=== PATIENT | female | born 1970 | race Asian ===

== ENCOUNTER → 2017-09-07 08:54 | Outpatient (CLI) | payer OTHER, MEDICAID, SELFPAY ==
--- NOTE | 2017-09-07 | DI.RAD.S_ITS ---
PROCEDURE: FL BARIUM SWALLOW W SPEECH INDICATIONS: COUGH TECHNIQUE: Examination was conducted in conjunction with speech pathology per standard protocol. In the lateral projection, filming was performed of the patient swallowing. AP projection filming may also be performed with patient swallowing. COMPARISON: None. FINDINGS: Function: The oral preparatory phase appears normal, with proper containment. The subsequent oral propulsive phase, pharyngeal phase, and esophageal phase of swallowing also appear normal with all proffered substances. Trace laryngotracheal penetration without aspiration. Persistent vallecular pooling. On the AP views, incomplete clearance of contrast from the esophagus, especially thicker liquids, suggesting esophageal dysmotility. Morphology: No cricopharyngeal bar is identified. No cervical esophageal webs. No Zenker's diverticulum. No strictures. IMPRESSION: 1. Mild laryngeal penetration with thin liquids. Considerable vallecular pooling and probable abnormal esophageal motility. Please see speech therapist report for details Dictated by: Silvestre Allen M.D. on 09/07/2017 at 10:08 Approved by: Silvestre Allen M.D. on 09/07/2017 at 10:11
--- NOTE | 2017-09-07 11:43 | ST.OPIE ---
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 Thompson Reason for Referral Persistent cough Setting Setting Outpatient Care Patient Information Identification Type Name Patient History Kacy was referred for a modified barium swallow by her physician, Dr. Thompson, due to a persistent cough and difficulty swallowing, beginning in February of 2017. She also told this speech- language pathologist that she has experienced a high level of throat clearing, beginning two weeks ago. She further reported that sometimes it feels like something gets stuck in her larynygeal area. 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 She saw an doctor of radiology in May of 2017 due to trouble swallowing. The ENT found that her larynx was irritated, possibly due to allergies. Kacy recently switched from Jazmin to Zyrtec for these allergies and also takes several other allergy medications (e.g., Singulair and Flonase). Her drill sharpener operator, Dr. Hale, told her that she might be experiencing silent reflux and prescribed Prevacid, which she has been taking without noticable effect. He also suggested that she have an MBSS to r/o silent reflux. The pt is scheduled for an endoscopy in September with Dr Robledo. Patient Positioning Position View Lat-A/P Imaging Lateral View Textures Administered Trials Presented Thin Liquid via Spoon Thin Liquid via Cup Callimont Liquid via Spoon Callimont Liquid via Cup Pudding Thick Liquid via Spoon Regular Textures Oral Phase Source: MBSIMP (TM) (C) Bolus Specific Scoring Grid Lip Closure No Impairment (WNL) Tongue Control During Bolus Hold No Impairment (WNL) Bolus Prep/Mastication No Impairment (WNL) Bolus Transport/Lingual Motion No Impairment (WNL) Oral Residue No Impairment (WNL) Residue Clearing No Impairment (WNL) Nasal Regurgitation No Pharyngeal Phase Source: MBSIMP (TM) (C) Bolus Specific Scoring Grid Delayed Initiation of Pharyngeal Swallow Yes Tongue Base Strength/Range of Motion Moderate Impairment Residue Along the Tongue Base Yes Clearance of Residue Along Tongue Base Mild Impairment Laryngeal Elevation Mild Impairment Anterior Hyoid Movement Moderate Impairment Epiglottic Range of Motion Moderate Impairment Vallecular Residue Yes Clearance of Vallecular Residue Moderate Impairment Laryngeal Vestibular Closure Mild Impairment Pharyngeal Stripping Wave WFL Pharyngeal Contraction WFL Posterior Pharyngeal Wall Residue Yes Clearance of Posterior Pharyngeal Wall Minimal Impairment Residue Upper Esophageal Sphincter Opening No Impairment (WNL) Residue in the Pyriform Sinuses Yes Clearance of Residue in the Pyriform Minimal Impairment Sinuses Esophageal Clearance Upright Position Moderate Impairment Pharyngoesophageal Backflow Observed Yes Additional Pharyngeal Phase Observations Kacy exhibited a delay in the initiation of the pharyngeal swallow, with the head of the bolus reaching the vallecula before swallowing across all trials. Her hyoid elevation was decreased and there was also reduced hyoid excursion. Her tongue base strength also presented as decreased. This decrease in tongue base strength and hyoid motion results in an incomplete epiglottic inversion, which puts Kacy at risk of laryngeal penetration/aspiration. She demonstrated flash penetration on a nectar thick liquid trial, but no aspiration. She had a moderate amount of residue in the vallecula on the thin and nectar thick trials, which were partially cleared with a cough, a throat clear, and a double swallow. There was a mild amount of residue in the pyriform sinuses and posterior pharyngeal wall on the thin liquid trials, which was cleared with a double swallow. Kacy did exhibit pharyngoesophageal backflow as the bolus in the A-P view was observed to flow upward following the swallow. A/P View Textures Administered Trials Presented Callimont Liquid via Cup Pudding Thick Liquid via Spoon A/P View Observations Pharyngeal Contraction WFL Esophageal Function Slowed Clearing Esophageal Clearance Upright Position Moderate Impairment Additional Observations The bolus was observed to remain in the esophagus following the swallow. Retrograde backflow was observed within the upper 1/2 of the esophagus Esophageal Observations Esophageal Function Kacy demonstrated very slow clearing of the bolus through her esophagus into her stomach . For this reason, a referral to a cement boat and barge loader is indicated. Clinical Impressions Dysphagia Type Moderate Pharyngeal Phase Dysphagia Findings Kacy Rehabilitation Potential Good Patient Appropriate for Therapy Yes Recommendations Diet Liquids Order Thin Diet Order Regular Medication Recommendation As Tolerated Aspiration Precautions Recommended Precautions Upright at 90 Degrees Alternate Liquids/Solids Double Swallow Treatment Plan Therapy Recommendations Outpatient Speech Therapy Additional Therapy Recommendations Outpatient speech therapy as indicated after additional testing Recommended Referrals GI Consult Compensatory Strategies Recommendations Sitting Upright (90 deg) Double Swallow Alternate Liquids/Solids
== END ==
PROVIDERS: PCP Family Medicine; Visit Provider Nurse Practitioner Family
DX: R05 Cough (principal)
CPT/HCPCS: 74230; 92611

== ENCOUNTER 2017-09-19 11:18 | Day surgery (SDC) | payer OTHER, MEDICAID, SELFPAY ==
[2017-09-19] VITALS (8 sets, daily range): BP systolic 130–175; BP diastolic 75–91; PULSE 67–77; RESP 12–17; TEMP 36.2–36.6; O2SAT 96–99
--- NOTE | 2017-09-19 | PATH_ITS ---
[facility] Accession Number: [id number] . 01 Material submitted: . GE JUNCTION . 02 Diagnosis: Gastroesophageal Junction, Biopsy: Squamocolumnar junctional mucosa with specialized intestinal metaplasia; please see Comment. Negative for dysplasia or malignancy. [facility]/09/21/2017 . 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 . 02 Electronically signed: . Jn Castillo MD, PhD, Pathologist NPI- [id number] . 01 Gross description: . GE JUNCTION: Received in formalin are 3 fragment(s) of schneider, soft tissue measuring 0.5 x 0.1 x 0.1 cm to 0.1 x 0.1 x 0.1 cm submitted entirely in 1 cassette(s) /TRC /TRC . 02 Pathologist provided ICD-10: K22.70 . 02 CPT . 205685 Performed at: 01 [facility] [address] [facility], [place], [place] [id number] MD Bo Clemente MD Phone: [phone] Performed at: 02 [facility] [address] [place], [place] [id number] MD Silvino Woods MD Phone: [phone]
--- NOTE | 2017-09-19 11:51 | PM.PREOP ---
Pre-operative Note Interval Note Pre-op Check: History & Physical Reviewed by Physician and Exam Performed H&P completed within 30 days and has changed as indicated here:: none ASA Class (for procedural sedation): II
[2017-09-19] MEDS: SODIUM CHLORIDE 0.9% 1,000 ML 200 ML IV (11:54)
[2017-09-19] MEDS: LIDOCAINE 4% SOLN 50 ML 20 ML TOP (12:10)
[2017-09-19] MEDS: TETRACAINE/BENZOCAINE/BUTAMBEN (CETACAINE) BOTTLE 1 SPRAY TOP (12:11)
[2017-09-19] MEDS: fentaNYL 250 MCG/5 ML INJ IV (12:11)
--- NOTE | 2017-09-19 12:15 | PM.OP.ENDO ---
Operative Date/Time/Diagnoses - Date of procedure: 09/19/17 Time of procedure: 12:15 Pre-op diagnosis: Chronic upper airway irritation. Consider silent reflux as a cause. Esophageal dysmotility based on a a swallowing study. Post-op diagnosis: same (Inflammation of the area above her vocal cords. Possible mild irritation at the GE junction. Area was biopsied.) Procedure & Clinicians Study performed: EGD with cold biopsy Same procedure as scheduled: Yes Indications: Chronic cough with swallowing issues. Surgeon: Albert Peters Procedure Notes SCOAP/Timeout: Performed Procedure in detail: The patient is placed in left lateral decubitus position underwent IV sedation directed by the surgeon consisting of fentanyl and Versed. Topical anesthetic had been applied to the oropharynx. A bite block was inserted the scope was advanced through it. The vocal cord and supraglottic area were examined and there was a fair amount of inflammation above the cords. The cords were normal in appearance. The scope was advanced into the esophagus. The esophagus was normal. The GE junction was possibly mildly inflamed. The stomach insufflated well. I could identify no abnormalities in the stomach itself. The antrum and body were normal the pyloric channel was normal. The duodenal bulb was a little short but otherwise unremarkable. The duodenum was normal to 4th part. The scope was brought back into the stomach and retroflexed. The proximal stomach appeared to be normal in appearance and I saw no evidence of hiatal hernia. The scope was brought up into the GE junction will random biopsies were taken. The scope was then removed. The patient seemed to tolerate the procedure well. Scope withdrawal time: Not applicable Sedation minutes: 15 Findings: other findings (Inflammation of the supraglottic area above the vocal cords.) Specimen(s): other (Biopsies at the GE junction) Complications: none Plan for aftercare: Consider referral to speech pathology to improve swallowing mechanism. Follow up: as needed Disposition: PACU
[2017-09-19] MEDS: MIDAZOLAM 5 MG/5 ML VIAL IV (12:16)
--- NOTE | 2017-09-19 13:01 | SUR.PHASEII ---
friend brought in, report to alicia leiva.
== END 2017-09-19 13:22 | disposition home or self-care (01) ==
PROVIDERS: PCP Family Medicine; Visit Provider Specialist
PROC: 0DJ08ZZ Inspection of Upper Intestinal Tract, Via Natural or Artificial Opening Endoscopic (ICD-10-PCS; CPT 43235; principal; 2017-09-19 11:45)
DX: K22.70 Barrett's esophagus without dysplasia (principal); K22.4 Dyskinesia of esophagus; R05 Cough; K44.9 Diaphragmatic hernia without obstruction or gangrene; G47.33 Obstructive sleep apnea (adult) (pediatric); Z87.891 Personal history of nicotine dependence
CPT/HCPCS: 43239; 88305; 99152; J2250; J3010

== ENCOUNTER 2017-10-09 09:20 | Outpatient (RCR) | payer OTHER, MEDICAID, SELFPAY | END 2018-04-05 10:42 | LOC: SP 09:20 | PROVIDERS: PCP Family Medicine; Visit Provider Specialist | DX: R13.10 Dysphagia, unspecified (principal) | CPT/HCPCS: 92610 ==

== ENCOUNTER → 2018-06-18 12:35 | Outpatient (CLI) | payer OTHER, SELFPAY ==
[2018-06-18 14:22] LABS: Alanine Aminotransferase 28 IU/L (9-52); Aspartate Aminotransferase 22 IU/L (14-36); Cholesterol 133 mg/dL (140-199); HDL Cholesterol 73 mg/dL (40-60); LDL Cholesterol Calculated 47 mg/dL (<100); Triglycerides 63 mg/dL (35-150)
== END ==
PROVIDERS: PCP Family Medicine; Visit Provider Nurse Practitioner Gerontology
DX: I21.3 ST elevation (STEMI) myocardial infarction of unspecified site (principal); R07.2 Precordial pain
CPT/HCPCS: 36415; 80061; 84450; 84460

== ENCOUNTER 2018-11-29 09:24 | Day surgery (SDC) | payer OTHER, SELFPAY ==
[2018-11-29] VITALS (8 sets, daily range): BP systolic 133–151; BP diastolic 76–88; PULSE 61–68; RESP 14–20; TEMP 36–37.2; O2SAT 95–100
--- NOTE | 2018-11-29 | PATH_ITS ---
[facility] Accession Number: [id number] . 01 Material submitted: . PART A: gastrointestinal site - BIOPSY ANTRUM PART B: esophagus, E-G Junction - BIOPSY GE JUNCTION . 01 Clinical history: . A. FOR H. PYLORI . 02 Diagnosis: A. Stomach, Antrum, Biopsy: Antral mucosa with reactive gastropathy. Negative for Helicobacter by immunohistochemistry. Negative for intestinal metaplasia. Negative for dysplasia and malignancy. . B. GE Junction, Biopsy: Squamocolumnar junctional mucosa with specialized intestinal metaplasia consistent with Mcclellan's esophagus. Negative for dysplasia and malignancy. [facility]/12/03/2018 . 02 Electronically signed: . Jessica Omer MD, Pathologist NPI- [id number] . 01 Gross description: . Part A: BIOPSY ANTRUM: Received in formalin are 4 fragment(s) of schneider, soft tissue measuring 0.1 x 0.1 x 0.1 cm to 0.4 x 0.2 x 0.2 cm which is entirely submitted and submitted entirely in 1 cassette(s) Part B: BIOPSY GE JUNCTION: Received in formalin are 4 fragment(s) of schneider, soft tissue measuring 0.1 x 0.1 x 0.1 cm to 0.2 x 0.1 x 0.1 cm which is entirely submitted and submitted entirely in 1 cassette(s) /DMC /DMC . 02 Microscopic: . A) An immunohistochemical stain was performed to evaluate for Helicobacter organisms and is negative. The control stain showed appropriate reactivity. . B) An alcian blue stain was performed to evaluate for intestinal metaplasia and is positive. The control stain showed appropriate reactivity. . * This test was developed and its performance characteristics determined by [facility]. It has not been cleared or approved by the U.S. Food and Drug Administration. The FDA has determined that such clearance or approval is not necessary. This test is used for clinical purposes. It should not be regarded as investigational or for research. . 02 Pathologist provided ICD-10: K22.70 . 02 CPT . 802814, 593596, P59003, 489663 Performed at: 01 [facility] [address] [place] [id number] MD Bo Clemente MD Phone: [phone] Performed at: [address] [id number] MD Jessica Omer MD Phone: [phone]
[2018-11-29] MEDS: SODIUM CHLORIDE 0.9% 1,000 ML 200 ML IV (09:57)
--- NOTE | 2018-11-29 09:59 | PM.HP.1 ---
History of Present Illness Date Patient Seen: 11/29/18 Time Patient Seen: 09:59 Chief complaint: [id number] Narrative: Patient is here for an EGD. She has had history of Mcclellan's esophagus. This is a surveillance exam. She has noticed a little more coughing of late. Patient History Medical History (Updated 11/29/18 @ 10:00 by Albert Peters MD) Obstructive sleep apnea of adult (Chronic) Excessive daytime sleepiness (Chronic) Insomnia, persistent (Chronic) Snoring (Chronic) Blindness of right eye (Chronic) Coronary artery disease (Chronic) Glaucoma (Chronic) Mixed stress and urge urinary incontinence (Chronic) History of myocardial infarction in last year (Resolved) Surgical History Hx of heart artery stent (Resolved) Status post delivery (Resolved 12/16/10) Status post eye surgery (Resolved) Social History marital status: details: to Adonis Brandon, lives in [facility] number of children: 3 household members: children and other lives independently: Yes caregiver/support person: No housing: house 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[employer]) nithin/gnosticism: [employer]oration Family & Social History Social History: household members other,children lives independently Yes caregiver/support person No Meds Home Medications Medication Instructions Recorded Confirmed Type ASPIRIN (Aspir-Low) 81 mg PO #0 11/01/10 11/28/18 History Prozac 10 mg PO DAILY 09/19/17 11/28/18 History Singulair 1 tab PO DAILY 09/19/17 11/28/18 History Zyrtec 10 mg PO BEDTIME PRN 11/28/18 11/28/18 History atorvastatin 80 mg tablet 80 mg PO DAILY 11/28/18 11/28/18 History cholecalciferol (vitamin D3) 2,000 4,000 unit PO DAILY 11/28/18 11/28/18 History unit capsule clopidogrel 75 mg tablet 75 mg PO DAILY 11/28/18 11/29/18 History ferrous sulfate 325 mg (65 mg 325 mg PO DAILY tab 11/28/18 11/28/18 History iron) tablet fluoxetine 10 mg tablet 20 mg PO DAILY 11/28/18 11/28/18 History magnesium 400 mg PO DAILY 11/28/18 11/28/18 History mecobalamin (vitamin B12) 2,000 mcg PO DAILY 11/28/18 11/28/18 History melatonin 5 mg tablet 10 mg PO BEDTIME PRN 11/28/18 11/28/18 History metoprolol tartrate 25 mg PO BID 11/28/18 11/28/18 History omega-3 fatty acids PO DAILY 11/28/18 11/28/18 History pantoprazole 20 mg tablet,delayed 20 mg PO BID tab 11/28/18 11/29/18 History release trospium ER 60 mg capsule,extended 60 mg PO QAM 11/28/18 11/28/18 History release 24 hr valsartan 20 mg PO DAILY 11/28/18 11/28/18 History vitamin B complex tablet 1 tab PO DAILY 11/28/18 11/28/18 History Allergies Allergy/AdvReac Type Severity Reaction Status Date / Time No Known Drug Allergies Allergy Verified 11/29/18 09:47 Review of Systems Review of Systems All systems reviewed & are unremarkable except as noted in HPI and below Exam Vital Signs (past 8 hours): - 11/29/18 09:55 Temperature 97.2 F L Pulse Rate 68 Respiratory Rate 18 Blood Pressure 151/76 H Pulse Oximetry 100 Oxygen Delivery Method Room Air Narrative Exam Narrative: Pleasant cooperative patient no apparent distress. Lungs are clear to auscultation. No rales or rhonchi. Heart regular rate and rhythm no murmur gallop. Abdomen is soft nontender without mass. No obvious hernias. Patient is alert and oriented x3. Assessment & Plan Assessment & Plan narrative: Patient for an EGD in biopsy to survey her Mcclellan's esophagus. I have discussed the procedure including risks of bleeding perforation. She appears to understand wishes to proceed.
--- NOTE | 2018-11-29 10:01 | PM.PREOP ---
Pre-operative Note Interval Note History & Physical reviewed/Exam performed by Physician: Yes Changes to H&P: No ASA Class (for procedural sedation): III
[2018-11-29] MEDS: LIDOCAINE 4% SOLN 50 ML 20 ML TOP (10:08)
[2018-11-29] MEDS: MIDAZOLAM 5 MG/5 ML VIAL IV (10:09)
[2018-11-29] MEDS: fentaNYL 250 MCG/5 ML INJ IV (10:10)
--- NOTE | 2018-11-29 10:22 | PM.OP.ENDO ---
Operative Date/Time/Diagnoses Date of procedure: 11/29/18 Time of procedure: 10:22 Pre-op diagnosis: History of Mcclellan's esophagus. Increase cough. Post-op diagnosis: same (Retained gastric food. Edema at the pyloric channel. Biopsies taken of the GE junction but no obvious Mcclellan's) Procedure & Clinicians Study performed: EGD with cold biopsy Same procedure as scheduled: Yes Indications: Surveillance Surgeon: Albert Peters Procedure Notes SCOAP/Timeout: Performed Procedure in detail: The patient had topical anesthetic applied to oropharynx. She was placed in left lateral decubitus position and underwent IV sedation directed by the surgeon consisting of fentanyl and Versed. A bite block was inserted and the scope was advanced through it into the esophagus. The esophagus was remarkable for mild tortuosity. GE junction was noted at 35 cm from the incisors. The stomach insufflated well. There were no lesions seen in the body, antrum or at the incisura. The pyloric channel was narrowed by a edema on lesser curve side. The duodenum was unremarkable to the 4th part. The scope was brought back into the stomach and retroflexed. The proximal stomach normal except I could not see a portion due to food. There was no evidence of a hiatal hernia.. The scope was straightened and brought out through the esophagus again. No lesions were seen. The typical appearance of Mcclellan's was not present but given her prior history biopsies were taken at the GE junction. The scope was removed and the patient tolerated the procedure well. Scope withdrawal time: Not applicable Sedation minutes: 12 Findings: other findings (Retained food and swelling with narrowing of the pyloric channel) Specimen(s): other (Antral biopsies including of the pyloric swelling and GE junction biopsies given history of Mcclellan's) Complications: none Recommendations: Other recommendation (EGD in 3 years) Follow up: as needed Disposition: PACU
--- NOTE | 2018-11-29 11:15 | SUR.PHASEI ---
Post procedure PACU note: Patient VSS, O2 sat WNL, responds appropriately to verbal commands, drowsy but easily arousable. Tolerating po without nausea. Stable for transfer to [facility]. Verbal report given to Efren Pearson RN
--- NOTE | 2018-11-29 11:58 | SUR.PHASEII ---
Abd soft. Pt's ride not available. Call light within reach.
== END 2018-11-29 13:20 | disposition home or self-care (01) ==
PROVIDERS: Family Provider Family Medicine; PCP Family Medicine; Visit Provider Specialist
PROC: 0DJ08ZZ Inspection of Upper Intestinal Tract, Via Natural or Artificial Opening Endoscopic (ICD-10-PCS; CPT 43235; principal; 2018-11-29 09:45)
DX: K22.70 Barrett's esophagus without dysplasia (principal); K31.1 Adult hypertrophic pyloric stenosis; K31.9 Disease of stomach and duodenum, unspecified; G47.33 Obstructive sleep apnea (adult) (pediatric); I25.10 Atherosclerotic heart disease of native coronary artery without angina pectoris; I25.2 Old myocardial infarction; H54.40 Blindness, one eye, unspecified eye; Z95.5 Presence of coronary angioplasty implant and graft
CPT/HCPCS: 43239; 99152; J2250; J3010

== ENCOUNTER → 2018-12-19 12:43 | Outpatient (CLI) | payer OTHER, SELFPAY ==
--- NOTE | 2018-12-19 | DI.RAD.S_ITS ---
PROCEDURE: XR CERVICAL SPINE 2V OR 3V INDICATIONS: NUMBNESS TINGLING IN L ARM TECHNIQUE: 3 view(s) of the cervical spine were acquired. COMPARISON: None. FINDINGS: Bones: No fractures or dislocations to the superior endplate of T2 level. The lateral masses of C1 appear intact on the odontoid view. No acute compression fracture. Multilevel cervical spondylitic changes with disc space loss at C5-6 and associated endplate osteophyte formation. Straightening of cervical lordosis. No suspicious bony lesions. Soft tissues: No prevertebral soft tissue swelling. IMPRESSION: Multilevel cervical spondylosis most prominent at C5-6. Minimal straightening of normal cervical lordosis likely related to positioning and/or concurrent muscle spasms. If there is persistent clinical concern or focal neurological deficits, further evaluation with MRI can be considered. Dictated by: Jarek Aquino M.D. on 12/19/2018 at 17:58 Approved by: Jarek Aquino M.D. on 12/19/2018 at 18:00
== END ==
PROVIDERS: PCP Family Medicine; Visit Provider Family Medicine
DX: M54.2 Cervicalgia (principal); M47.812 Spondylosis without myelopathy or radiculopathy, cervical region; R20.0 Anesthesia of skin; R20.2 Paresthesia of skin
CPT/HCPCS: 72040

== ENCOUNTER → 2018-12-26 12:33 | Outpatient (CLI) | payer OTHER, SELFPAY ==
--- NOTE | 2018-12-26 | DI.RAD.S_ITS ---
PROCEDURE: XR LUMBAR SPINE 2-3V INDICATIONS: LOW BACK PAIN TECHNIQUE: Pre-views of the lumbar spine were acquired. COMPARISON: None. FINDINGS: Bones: 5 hcm-cyl-haaxgjm vertebrae are present. There is normal bony alignment. No vertebral body compression fractures. Degenerative endplate changes are noted at L3-4 through L5-S1 levels. No suspicious bony lesions. Soft tissues: Overlying bowel gas pattern is normal. No suspicious soft tissue calcifications. IMPRESSION: Degenerative disc disease in lower lumbar spine. No compression fracture or spondylolisthesis. Dictated by: Ede Hernandez M.D. on 12/26/2018 at 14:56 Approved by: Ede Hernandez M.D. on 12/26/2018 at 14:56
--- NOTE | 2018-12-26 12:40 | DIET.PN ---
Dietary Progress Note Assessment: 48y F c significant history of high blood pressure c complications (blind R eye, heart attack) currently in Cardio Rehab wanting eating plan to keep blood pressure down and wt in good range. Also developing neck arthritis c pain, wants anti-inflammatory diet info. Desires weekly check-ins for accountablility. 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 Pt reports recent stress r/t living situation, raising teenager. HT: 5'1 WT: 168# UBW: 185# BMI: 31.2 obese Goal Wt: 135# craves salt, thirsty and dry mouth. Has tried hormone therapy and 500kcal restrictions to lose weight. currently trying intermittent fasting, wants to do 23h but admits to cheating. Usual Intake: 7:30am wakes 2 glass water c meds 10am decaf coffee c creamer 1230pm: leftovers or 1.5c steel cut oats c 3 sardines in olive oil c lillie or (seasonal fruits) c decaf coffee and 12oz water sn: chips/cheese/crackers 6pm dinner: fish/chicken, vegetables, fruits, c rice (brown and wild more and more) wakes up 5x/n for coughing or just can't sleep PA: on feet all day, two days in gym and 1 d at cardio rehab Nutrition Diagnosis: Undesirable food choices r/t tendency to rely on extreme measures for weight loss aeb pt listing multiple failed diets and yoyo weights, eating primarily between noon and 6pm, and choosing high sodium snacks. Interventions: Using [employer] to track food for next several weeks trying to keep to about 1,610kcal per day Limit steel cuts to 1c at [facility] with one more sardine. Change snacks to shellie, 12 unsalted sprouted dehydrated nuts, or vegetable salads Attend intermittent fasting talk at [facility] Monitoring/Evaluations: f/u one week
== END ==
PROVIDERS: Family Provider Family Medicine; PCP Family Medicine; Visit Provider Family Medicine
DX: I10 Essential (primary) hypertension (principal); M54.42 Lumbago with sciatica, left side; M54.41 Lumbago with sciatica, right side; G89.29 Other chronic pain; M51.36 Other intervertebral disc degeneration, lumbar region; M54.5 Low back pain
CPT/HCPCS: 72100; 97802

== ENCOUNTER → 2019-01-10 12:32 | Outpatient (CLI) | payer OTHER, SELFPAY ==
--- NOTE | 2019-01-10 13:28 | DIET.PN ---
Dietary Progress Note Assessment: 48y F here for f/u regarding implementation of heart healthy diet and wt loss for control of her high BP. WT: 166# (same as 2w ago, wt goal is 135#) Pt continuing in cardiac rehab 1x/w and going to gym 1-2x/w in addition. Pt currently tracking food using shukri set to 1610kcal/d and 2,300mg sodium. She is staying within her kcal and sodium ranges, but discouraged she has not been losing wt. Nutrition Diagnosis: overweight r/t inactivity aeb pt working out 2x/w and otherwise relying on active job as activity minutes, no wt loss in 2w. Interventions: Discussed wt maintenance vs wt loss, how her plan is excellent for maintenance but needs to make a caloric deficit to see wt loss. A healthy way to do this is with increased cardio physical activity. Pt will follow 16h intermittent fast daily between 2000 and 1200, set new kcal goal at 1450 (-160kcal/d) and will aim to get 30 min of cardio exercise per day. Monitoring/Evaluations: f/u in two weeks
== END ==
PROVIDERS: PCP Family Medicine; Visit Provider Family Medicine
DX: I10 Essential (primary) hypertension (principal)
CPT/HCPCS: 97802

== ENCOUNTER 2019-03-14 11:30 | Outpatient (RCR) | payer OTHER, SELFPAY | END 2019-03-28 09:15 | LOC: CAR 11:30 | PROVIDERS: PCP Family Medicine; Visit Provider Family Medicine | DX: I21.3 ST elevation (STEMI) myocardial infarction of unspecified site (principal) | CPT/HCPCS: 93797; 93798 ==

== ENCOUNTER → 2019-05-10 14:28 | Outpatient (CLI) | payer OTHER, SELFPAY ==
--- NOTE | 2019-05-10 | DI.CT.S_ITS ---
PROCEDURE: CT ABDOMEN PELVIS W CON INDICATIONS: Unspecified ovarian cyst, unspecified side TECHNIQUE: After the administration of oral and intravenous contrast, 5 mm thick sections acquired from the diaphragms to the symphysis. 5 mm thick coronal and sagittal reformats were performed. For radiation dose reduction, the following was used: automated exposure control, adjustment of mA and/or kV according to patient size. COMPARISON: None. FINDINGS: Image quality: Excellent. ABDOMEN: Lung bases: Lung bases are clear. Heart size is normal. Solid organs: Liver is normal in size and enhancement. Multiple tiny presumed cysts versus hemangiomata of the liver. Gallbladder is unremarkable. Biliary system is non-dilated. Pancreas enhances normally. Spleen is normal in size and enhancement. No adrenal nodules. Kidneys are normal in size and enhancement, without hydronephrosis. Peritoneum and bowel: Stomach, small bowel, and colon loops are normal in caliber and wall thickness. No free fluid or air. Nodes and vessels: No retroperitoneal or mesenteric adenopathy. Aorta and inferior vena cava are normal in caliber. Miscellaneous: No ventral hernias. PELVIS: Genitourinary: Bladder wall thickness is normal. Miscellaneous: No inguinal hernias or adenopathy. There is a large cystic structure involving the left adnexa, consistent with a large ovarian cystic lesion. Measurements are 9.3 x 9.1 x 7.8 cm. Bones: No suspicious bony lesions. No vertebral body compression fractures. IMPRESSION: 1. Large cystic lesion of left adnexa. Lesion may potentially be benign or malignant. 2. No findings suspicious for metastatic disease. Dictated by: Eric Price M.D. on 05/10/2019 at 17:32 Approved by: Eric Price M.D. on 05/10/2019 at 17:42
[2019-05-10 15:24] LABS: Alanine Aminotransferase 18 IU/L (<35); Albumin Globulin Ratio 1.3 (1.0-2.8); Alkaline Phosphatase 93 U/L (38-126); Aspartate Aminotransferase 26 IU/L (14-36); BUN Creatinine Ratio 25.7 (6-22); Bilirubin Total 0.2 mg/dL (0.2-1.3); Blood Urea Nitrogen 18 mg/dL (7-17); Carbon Dioxide 27 mmol/L (22-32); Chloride 105 mmol/L (98-107); Estimated Glomerular Filt Rate > 60.0 mL/min (>60); Glucose 111 mg/dL (70-100); HEMOLYSIS < 15 (0-50); Potassium 3.7 mmol/L (3.4-5.1); Sodium 140 mmol/L (137-145)
== END ==
PROVIDERS: PCP Family Medicine; Visit Provider Urology
DX: N83.202 Unspecified ovarian cyst, left side (principal); R39.9 Unspecified symptoms and signs involving the genitourinary system
CPT/HCPCS: 36415; 74177; 80053; Q9967

== ENCOUNTER → 2019-05-16 08:54 | Outpatient (CLI) | payer OTHER, SELFPAY ==
--- NOTE | 2019-05-16 08:57 | DI.US.S_ITS ---
PROCEDURE: US PELVIC COMPLETE INDICATIONS: EVAL LT ADNEXAL CYSTIC MASS SEEN ON US 05/08, CT 05/10 TECHNIQUE: Real-time scanning was performed of the pelvic organs, with image documentation. Additional endovaginal scanning was necessary due to incomplete visualization of the adnexal and endometrial structures by transabdominal scanning. COMPARISON: [facility], CT, CT ABDOMEN PELVIS W CON, 05/10/2019, 15:33. FINDINGS: Transabdominal scanning: No pathologic free abdominal or pelvic fluid. Endovaginal scanning: Uterus: Uterus is normal in size at 10.2 x 6.1 x 5.1 cm. The endometrium measures 18 mm in combined thickness. Ovaries: The right ovary measures 4.4 x 3.2 x 2.6 cm. A dominant follicle measuring 2.1 cm can be seen within it. At the expected location of the left ovary, there is a chocolate cyst that measures 9.5 8.3 x 6.9 cm. The left ovary is not seen separate from this lesion. IMPRESSION: Likely endometrioma seen involving the left ovary. The endometrial stripe is mildly thickened at 18 mm. Dictated by: Francis Lopez M.D. on 05/16/2019 at 9:47 Approved by: Francis Lopez M.D. on 05/16/2019 at 9:51
== END ==
PROVIDERS: PCP Family Medicine; Referring Provider Obstetrics & Gynecology; Visit Provider Obstetrics & Gynecology
DX: Z01.818 Encounter for other preprocedural examination (principal); N80.1 Endometriosis of ovary; N92.0 Excessive and frequent menstruation with regular cycle; R93.89 Abnormal findings on diagnostic imaging of other specified body structures; R19.09 Other intra-abdominal and pelvic swelling, mass and lump; R10.2 Pelvic and perineal pain
CPT/HCPCS: 36415; 76830; 76856; 85025; 86304; 86305

== ENCOUNTER → 2019-05-16 12:56 | Outpatient (CLI) | payer OTHER, SELFPAY ==
[2019-05-16 14:07] LABS: Add Manual Diff / Slide Review NO; Basophils Absolute Auto 100 /uL (0-100); Basophils Percent Auto 0.9 % (0-2); Eosinophils Absolute Auto 300 /uL (0-450); Eosinophils Percent Auto 3.6 % (2-4); Hematocrit 37.5 % (36-46); Hemoglobin 12.4 g/dL (12.0-16.0); Lymphocytes Absolute Auto 1300 /uL (1100-4500); Lymphocytes Percent Auto 15.5 % (25-40); Mean Corpuscular Hemoglobin 26.2 PG (26-34); Mean Corpuscular Volume 79.3 fL (80-100); Monocytes Absolute Auto 500 /uL (0-900); Neutrophils Absolute Auto 6300 /uL (1500-7000); Platelet Count 343 X10^3/uL (150-400); Red Blood Cell Count 4.73 X10^6/uL (4.0-5.2); Red Cell Distribution Width 15.4 % (11.6-14.8); White Blood Cell Count 8.5 X10^3/uL (4.5-11.0)
[2019-05-16 14:48] LABS: Cancer Antigen 125 23 U/mL (0-35)
[2019-05-21 16:22] LABS: Human HE4 Antigen 36 pmol/L
== END ==
PROVIDERS: PCP Family Medicine; Referring Provider Obstetrics & Gynecology; Visit Provider Obstetrics & Gynecology
DX: Z01.818 Encounter for other preprocedural examination (principal); N92.0 Excessive and frequent menstruation with regular cycle; R19.09 Other intra-abdominal and pelvic swelling, mass and lump; R93.89 Abnormal findings on diagnostic imaging of other specified body structures
CPT/HCPCS: 36415; 85025; 86304; 86305

== ENCOUNTER 2019-06-06 06:21 | Day surgery (SDC) | payer OTHER, SELFPAY ==
[2019-06-04 08:53] VITALS: BMI 32.5
[2019-06-06] VITALS (18 sets, daily range): BP systolic 129–169; BP diastolic 65–89; PULSE 77–91; RESP 14–20; TEMP 35.9–37; O2SAT 91–98; BMI 32.4
--- NOTE | 2019-06-06 | PATH_ITS ---
[facility] Accession Number: [id number] . 01 Material submitted: . PART A: endometrium - ENDOMETRIAL CURETTINGS PART B: uterine adnexa - LEFT OVARY, BILATERAL FALLOPIAN TUBES AND ENDOMETRIOMA . 02 Diagnosis: A. Endometrium, Curettage: Proliferative endometrium with features suggestive of glandular and stromal breakdown. No evidence of neoplasia or hyperplasia. . B. Left Ovary, Bilateral Fallopian Tubes, Salpingo-oophorectomy, Salpingectomy: Benign endometriotic cyst/endometrioma. Fallopian tube and fallopian tube segment with no diagnostic abnormality. No evidence of neoplasia. [facility] 06/12/2019 1510 Local . 02 Electronically signed: . Jessica Omer MD, Pathologist NPI- [id number] . 01 Gross description: . A. Received in formalin, labeled with the patient's name and endometrial curettings, is a 2.0 x 1.0 x 0.5 cm aggregate of multiple irregular fragments of red-schneider soft tissue and mucus on Telfa, entirely submitted. Summary of sections: A1 - multiple pieces. B. Received in formalin, labeled with the patient's name and left ovary, fallopian tube and endometrioma, is a fragment of the distal fimbriated end of fallopian tube, and an ovary with attached fallopian tube. The fallopian tube fimbria measures 1.0 x 0.7 x 0.5 cm, and is bisected and entirely submitted. The attached fallopian tube is fimbriated, segmented, and measures 5.5 cm length by 0.6 cm diameter when reapproximated, is covered with purple-schneider serosa with paratubal cysts, and has a lumen up to 0.3 cm. The attached ovary is previously disrupted, 49 grams, 8.0 x 5.5 x 5.0 cm, with a pale schneider, convoluted outer surface which is inked black. Opening the uniloculated cystic ovary reveals red-brown adherent clot material within, wall thickness up to 0.8 cm, without papillary components identified. Pale schneider remaining ovarian parenchyma is identified within the thickened portion of the wall. Tax Collector sections are submitted. Summary of sections: B1 - distal fallopian tube fimbriae fragment, two pieces; B2 - fallopian tube fimbriae and cross-sections, four pieces; B3-5 - ovary, multiple pieces. ([id number]) B6-9 - additional delivery representative cyst wall fragments. /[facility] 06/12/2019 1510 Local . 02 Microscopic: . B. An immunohistochemical stain for CD10 was performed on block B7 to characterize cells of interest and is positive, consistent with scattered endometrial stroma. The control stain showed appropriate reactivity. . * This test was developed and its performance characteristics determined by [facility]. It has not been cleared or approved by the U.S. Food and Drug Administration. The FDA has determined that such clearance or approval is not necessary. This test is used for clinical purposes. It should not be regarded as investigational or for research. . 02 Pathologist provided ICD-10: N80.1 . 02 CPT . 297228, 085738 Specimen Comment: A duplicate report has been generated due to demographic updates. Performed at: 01 [facility] [address] [address], [place], [place] [id number] MD Bo Clemente MD Phone: [phone] Performed at: [address] [place] [id number] [place] [id number] MD Jessica Omer MD Phone: [phone]
--- NOTE | 2019-06-06 07:21 | PM.PREOP ---
Pre-operative Note Interval Note History & Physical reviewed/Exam performed by Physician: Yes Changes to H&P: No
[2019-06-06 07:37] LABS: Add Manual Diff / Slide Review NO; Basophils Absolute Auto 100 /uL (0-100); Basophils Percent Auto 1.4 % (0-2); Eosinophils Absolute Auto 400 /uL (0-450); Eosinophils Percent Auto 5.1 % (2-4); Hematocrit 36.5 % (36-46); Hemoglobin 11.9 g/dL (12.0-16.0); Lymphocytes Absolute Auto 1400 /uL (1100-4500); Lymphocytes Percent Auto 18.4 % (25-40); Mean Corpuscular HGB Conc 32.7 % (30-36); Mean Corpuscular Hemoglobin 26.1 PG (26-34); Mean Corpuscular Volume 79.8 fL (80-100); Monocytes Absolute Auto 400 /uL (0-900); Monocytes Percent Auto 5.6 % (3-14); Neutrophils Absolute Auto 5300 /uL (1500-7000); Neutrophils Percent Auto 69.5 % (50-75); Platelet Count 317 X10^3/uL (150-400); Red Blood Cell Count 4.57 X10^6/uL (4.0-5.2); Red Cell Distribution Width 15.2 % (11.6-14.8); White Blood Cell Count 7.6 X10^3/uL (4.5-11.0)
[2019-06-06] MEDS: LACTATED RINGERS 1,000 ML 42 ML IV ×2 (07:42→08:52)
[2019-06-06 07:47] LABS: Alanine Aminotransferase 23 IU/L (<35); Albumin Globulin Ratio 1.3 (1.0-2.8); Alkaline Phosphatase 95 U/L (38-126); Aspartate Aminotransferase 26 IU/L (14-36); BUN Creatinine Ratio 23.3 (6-22); Bilirubin Total 0.2 mg/dL (0.2-1.3); Blood Urea Nitrogen 14 mg/dL (7-17); Calcium 9.8 mg/dL (8.4-10.2); Carbon Dioxide 30 mmol/L (22-32); Chloride 102 mmol/L (98-107); Estimated Glomerular Filt Rate > 60.0 mL/min (>60); Globulin 3.1 g/dL (1.7-4.1); Glucose 113 mg/dL (70-100); HEMOLYSIS < 15 (0-50); Potassium 3.7 mmol/L (3.4-5.1); Sodium 140 mmol/L (137-145); Total Protein 7.1 g/dL (6.3-8.2)
[2019-06-06] MEDS: BUPIVACAINE 0.5% W/ EPI (PF) 10 ML VIAL 20 ML INJ (08:51)
[2019-06-06] MEDS: OXYCODONE/ACETAMINOPHEN 5/325 TABLET 1 TAB PO ×2 (11:07→14:01)
[2019-06-06] MEDS: fentaNYL 100 MCG/2 ML INJ IV ×2 (11:16→11:21)
[2019-06-06] MEDS: HYDROMORPHONE 2 MG INJ IV ×3 (11:30→11:55)
--- NOTE | 2019-06-06 11:46 | SUR.PHASEI ---
[facility] care studio operations engineer in charge stated pt will be going to center with receiving RN Kush Conway; will have to hold off transfer per Jinny until 1245.
--- NOTE | 2019-06-06 15:26 | PC.ADMIT ---
[email or web address] Admission Note: The patient,Kacy Taylor,48 y/o, was given written information regarding hospital policies, unit procedures and contact persons. Patient's smoking status: Former smoker. Vital Signs - 8 hr 06/06/19 10:46 06/06/19 10:51 06/06/19 10:56 Temperature 97.8 F 97.8 F 96.7 F L Pulse Rate 91 H 87 90 Respiratory Rate 20 18 20 Blood Pressure 145/72 H 138/78 136/86 Pulse Oximetry 95 93 91 06/06/19 11:01 06/06/19 11:17 06/06/19 11:32 Temperature 96.7 F L 97.3 F L 97.3 F L Pulse Rate 88 87 84 Respiratory Rate 16 17 19 Blood Pressure 137/76 155/81 H 158/78 H Pulse Oximetry 92 92 98 06/06/19 11:40 06/06/19 11:45 06/06/19 11:50 Temperature Pulse Rate 80 83 83 Respiratory Rate 17 17 17 Blood Pressure 157/83 H 152/65 H 129/75 Pulse Oximetry 95 96 96 06/06/19 11:55 06/06/19 12:00 06/06/19 12:26 Temperature 97.5 F L 97.7 F Pulse Rate 83 84 84 Respiratory Rate 17 17 14 Blood Pressure 138/86 132/79 135/81 Pulse Oximetry 97 95 95 06/06/19 12:55 06/06/19 13:25 06/06/19 13:55 Temperature 97.7 F 98.1 F 98.2 F Pulse Rate 85 85 87 Respiratory Rate 16 17 16 Blood Pressure 133/78 133/83 147/85 H Pulse Oximetry 97 96 98 06/06/19 14:55 Temperature 98.6 F Pulse Rate 89 Respiratory Rate 17 Blood Pressure 140/80 Pulse Oximetry 97
--- NOTE | 2019-06-06 15:26 | PC.NURSE ---
1255 Admitted to [facility] from OR settled in. Vital signs done
[2019-06-06] MEDS: KETOROLAC 30 MG/ML VIAL IV (16:32)
[2019-06-06] MEDS: OXYCODONE IR 10 MG TABLET PO (17:51)
--- NOTE | 2019-06-06 21:36 | PM.GYNOP.1 ---
Operative Date/Time/Diagnoses Date of procedure: 06/06/19 Time of procedure: 10:30 Pre-op diagnosis: 1. Large complex left ovarian cyst, probable endometrioma 2.Menorrhagia Post-op diagnosis: other (Large complex left ovarian cyst, apparent endometrioma or hemorrhagic ovarian cyst. Normal appearing endometrium) Procedure & Clinicians Procedure: Procedures Operation Date: 06/06/19 07:45 Actual Procedures Side Surgeon p D&C , Hysteroscopy , Not Applicable Alexa Brownlee MD s Laparoscopic Oophorectomy left, bilateral salpingectomy Left Alexa Brownlee MD Indications: Symptomatic 9 cm complex left ovarian cyst which appears consistent with an endometrioma versus hemorrhagic cyst on ultrasound. HE4 and CA 125 were normal. Heavy menses, menorrhagia for 2 months, unable to obtain office biopsy due to tight cervix Surgeon: Alexa Brownlee Molding Process Technician: Tien Alcantara Anesthesia Type: General Operative Notes Findings: There was an omental adhesion to abdominal wall in the left lower quadrant which was lysed. A large smooth-walled left ovarian cyst was noted, encompassing the entire ovary. The tube was splayed over this cyst. The cyst was adherent to the left lateral inferior uterus, and had 1 thin filmy adhesion to the sigmoid which was lysed. Otherwise free of adhesions. The cyst was drained for dark brown, chocolate fluid consistent with old blood. After removal the cyst was incised and was smooth walled. Cyst appeared consistent with an endometrioma or old hemorrhagic cyst. On laparoscopy the uterus appeared normal. The right ovary appeared normal. The right fallopian tube appeared normal, noted to be previously interrupted with prior tubal ligation as had been the left tube. There was no endometriosis noted in the anterior or posterior cul-de-sacs. On hysteroscopy a normal appearing uterine cavity was noted, without any polyps, fibroids or lesions. The tubal ostia were visible bilaterally. The endometrium was overall atrophic in appearance with only some minimal shaggy tissue. Endocervical canal appeared normal. Closure Type: primary Specimen(s): endometrial curettings, left tube & ovary, portion of right tube and washings Estimated blood loss (mL): 50 Blood products transfused: none Procedure in detail: After being properly identify the patient was taken to operating room. After an adequate level of general anesthesia was obtained she was placed in the dorsal lithotomy position and prepped and draped in routine sterile fashion. Her bladder was sterilely drained with a rubber catheter with the prep. Time-out was taken and patient procedure was identified. Attention was 1st placed vaginally where an open-sided Graves speculum was placed and the cervix was grasped with a single-tooth tenaculum. She had taken vaginal misoprostol several hours prior to the procedure. Her cervix was visibly open, dilated at this time. A uterine sound was passed, uterus sounded to 9.5 cm. Cervix was open enough to pass a medium-sized dilator, no dilatation needed and a diagnostic hysteroscope was passed without difficulty. Normal saline solution was used as a uterine distention medium. Visualization revealed findings as listed above. There was a normal cervical canal, uterine cavity and normal-appearing endometrium, overall atrophic in appearance, without any lesions noted. The hysteroscope was removed. A curette was placed and global curettage performed for a small amount of endometrial curettings, consistent with the thin appearance of the endometrium. Curettings were placed on [facility] for pathology. An intrauterine manipulator was placed and the tenaculum was removed. Outer gloves were removed and then attention was placed to the abdomen. After injection of local anesthesia, a small infraumbilical vertical incision was made, the abdomen was elevated and a Veres needle was passed without difficulty. Opening pressure was 3 mm Hg. The abdomen was insufflated with CO2 gas. Veres needle was removed. Towel clamps were used to better elevate the abdomen and a Visiport 5 mm trocar was placed under direct visualization without difficulty. Upon inspection intraperitoneal placement was noted and the area beneath the trocar appeared atraumatic. Inspection of the upper abdomen revealed a normal upper abdomen without adhesions. Normal liver was visualized. Inspection of the lower abdomen pelvis revealed an adhesion of the omentum to the left anterior abdominal wall, loose adhesion. Just behind this the white surface of the enlarged ovarian cyst was visible. No other adhesions were noted. At this time 2 additional 5 mm ports were placed in the right and left lower abdomen after injection of local anesthesia, both under direct visualization without difficulty. The suction plaster molder was placed, washings were performed over the cyst in the pelvis and pelvic washings aspirated and sent for cytology. The omental adhesion was taken down with the PK device, lysing the adhesion near the abdominal wall. There was then better access, complete visualization of the lower abdomen, ovarian cyst. The uterus was elevated, the patient was placed in mild Trendelenburg, the bowel was pushed back away from the uterus and the pelvis. Inspection revealed a normal uterus. The fallopian tubes were noted to be interrupted with prior tubal ligation. The right ovary was normal. The proximal right fallopian tube was noted to be mildly swollen and more adherent to the uterus consistent with hydrosalpinx from the tubal. The distal end was visible over the ovary. On the left side a large cyst was noted which had a white smooth capsule. It was mobile. In 1 area was noted to be adhered to the left lateral uterus. Ovary was overall mobile and could be elevated. The fallopian tube was splayed over the surface the cyst. There was also noted 1 tiny ?banjo string? adhesion to the left side of the cyst from the sigmoid colon. This adhesion was lysed with the PK instrument. Despite being overall mobile, it was difficult to obtain for adequate visualization of the entire utero-ovarian ligament for removing the ovary, due to the cyst size. At this time the right lower quadrant port incision was extended and a 10 12 trocar was inserted. The Endo-Catch bag was placed. The ovary was placed in the bag. An additional 5 mm trocar was placed suprapubically. The left ovary was elevated with an atraumatic grasper and through the suprapubic port a sharp tipped small suction catheter was placed and attached to the suction device. The cyst was punctured and drained of a large amount of thick chocolate appearing material consistent with old blood. The cyst did appear consistent with endometrioma or old hemorrhagic cyst. Cyst appeared mostly or fully drained, and ovary was then much reduced in size and floppy year. Was able to be elevated and manipulated to proceed with laparoscopic oophorectomy. Nothing had drained into the Endo-Catch bag. For room for proceeding with the surgery this Endo-Catch bag was removed under direct visualization. The ovary was then elevated and the PK instrument was used to come across infundibulopelvic ligament hugging the inferior ovary. The cyst had partially grown into the broad ligament and with hugging the ovary the connection to broad ligament was lysed while ligating the IP ligament.. After ligating the IP and the broad ligament there was a small opening within the broad ligament, but dissection had not been carried deep and to the broad ligament. The PK was then used to come across the utero-ovarian ligament and this was then ligated. The PK was then used to come across the adhesions between the ovary and the left lateral uterus. This was essentially the ovary itself adherent, some white tissue. The area was posterior to the round ligament. After ligating this adhesion the ovary was free. The freed ovary was placed into the pelvis temporarily. Inspection of the pedicles revealed some light bleeding along the broad ligament near the junction of the round ligament to the uterus. This area was grasped with the PK instrument and coagulated. Suction irrigation was performed and inspection revealed no further areas of bleeding. Attention was then placed to the distal right fallopian tube which was grasped and elevated. The PK instrument was then used to come across the mesosalpinx inferior to the tube and then across the tube to remove the distal fimbriated portion. This portion of tube was removed through the trocar and has out the specimen. The tube had been interrupted in the midsection with prior tubal ligation. The proximal portion of the tube was not removed since it was somewhat adherent to the right lateral uterus. At this time another Endo-Catch bag was placed through the 10-12 trocar port. The left ovary and adherent left tube was placed in the Endo-Catch bag and the bag was closed and direct visualization. The middle part of the Endo-Catch bag was removed. The bag itself with the ovary was too large to pull through the incision. The fascial portion of the incision was extended. The specimen was still too large to remove. With placing an Allis clamp into the bag, I grasped the visible ovary and was able to then pull and removed the ovary, which was handed off as specimen. The Endo-Catch bag was then removed. The ovary was opened on the side table and was smooth-walled internally, without any nodules or excrescences. The interior lumen was coated with dark old blood. Attention was placed to the right trocar site. The edges of the fascia were grasped with Allis clamps. The fascia was closed with running suture of 0 Vicryl. The abdomen was then reinsufflated and inspection was performed. Continued hemostasis was noted. The pelvis was irrigated and suctioned. The procedure was then ended. The gas was turned off and allowed to escape from the abdomen. The small trocars were removed. The right lower abdominal incision was irrigated above the fascia and the skin was closed with running continuous suture of 4 0 Monocryl. The umbilical incision was closed with 2 subcuticular sutures of 4 0 Monocryl. The left and suprapubic incisions were closed with 2 interrupted sutures of 4 0 Monocryl. Steri-Strips and sterile dressings were placed. Mid procedure a Cruz catheter had been placed due to noticing her bladder was becoming full. The Cruz catheter was now removed. The Humi catheter was removed. A speculum was placed and good hemostasis was noted at the tenaculum sites and overall. The procedure was ended. She tolerated the procedure well went to recovery room in stable condition. Complications: none Post-operative Condition: stable Disposition: PACU Plan for aftercare: Sent to a hospital bed after the PACU for observation for several hours. She progressed normally and was discharged home the same day
== END 2019-06-06 18:33 | disposition home or self-care (01) ==
LOC: OR 06:22 → AC 06:22 → LABOR 13:03
PROVIDERS: PCP Family Medicine; Referring Provider Obstetrics & Gynecology; Visit Provider Obstetrics & Gynecology
PROC: 0UDB8ZZ Extraction of Endometrium, Via Natural or Artificial Opening Endoscopic (ICD-10-PCS; CPT 58558; principal; 2019-06-06 07:45)
PROC: (CPT 58661; 2019-06-06 07:45)
DX: N83.292 Other ovarian cyst, left side (principal); K66.0 Peritoneal adhesions (postprocedural) (postinfection); N80.1 Endometriosis of ovary
CPT/HCPCS: 58661; 58558; 36415; 80053; 85025; 86850; 86900; 86901; J0330; J1100; J1170; J1885; J2405; J2704; J3010

== ENCOUNTER → 2019-06-10 11:33 | Outpatient (CLI) | payer OTHER, SELFPAY ==
[2019-06-06 15:00] VITALS: BMI 32.4
[2019-06-10 11:57] LABS: Add Manual Diff / Slide Review NO; Basophils Absolute Auto 100 /uL (0-100); Basophils Percent Auto 0.7 % (0-2); Eosinophils Absolute Auto 300 /uL (0-450); Eosinophils Percent Auto 2.5 % (2-4); Hematocrit 35.1 % (36-46); Hemoglobin 11.6 g/dL (12.0-16.0); Lymphocytes Absolute Auto 1000 /uL (1100-4500); Lymphocytes Percent Auto 9.6 % (25-40); Mean Corpuscular HGB Conc 33.1 % (30-36); Mean Corpuscular Hemoglobin 26.3 PG (26-34); Mean Corpuscular Volume 79.5 fL (80-100); Monocytes Absolute Auto 500 /uL (0-900); Monocytes Percent Auto 4.6 % (3-14); Neutrophils Absolute Auto 8800 /uL (1500-7000); Neutrophils Percent Auto 82.6 % (50-75); Platelet Count 376 X10^3/uL (150-400); Red Blood Cell Count 4.42 X10^6/uL (4.0-5.2); Red Cell Distribution Width 15.2 % (11.6-14.8); White Blood Cell Count 10.6 X10^3/uL (4.5-11.0)
[2019-06-10 12:09] LABS: Alanine Aminotransferase 16 IU/L (<35); Albumin 4.1 g/dL (3.5-5.0); Albumin Globulin Ratio 1.2 (1.0-2.8); Alkaline Phosphatase 84 U/L (38-126); Aspartate Aminotransferase 23 IU/L (14-36); BUN Creatinine Ratio 16.9 (6-22); Bilirubin Total 0.4 mg/dL (0.2-1.3); Blood Urea Nitrogen 22 mg/dL (7-17); Calcium 9.3 mg/dL (8.4-10.2); Carbon Dioxide 32 mmol/L (22-32); Chloride 98 mmol/L (98-107); Estimated Glomerular Filt Rate 43.5 mL/min (>60); Globulin 3.4 g/dL (1.7-4.1); Glucose 102 mg/dL (70-100); HEMOLYSIS < 15 (0-50); Potassium 3.7 mmol/L (3.4-5.1); Sodium 138 mmol/L (137-145); Total Protein 7.5 g/dL (6.3-8.2)
--- NOTE | 2019-06-10 12:52 | DI.CT.S_ITS ---
PROCEDURE: CT ABDOMEN PELVIS W CON INDICATIONS: R10. 9 ABD PAIN TECHNIQUE: After the administration of intravenous contrast, 5 mm thick images acquired from the diaphragm to the symphysis pubis after a 10-minute delay. 2 mm thick coronal and sagittal reformats were then performed of the kidneys and ureters. For radiation dose reduction, the following was used: automated exposure control, adjustment of mA and/or kV according to patient size. COMPARISON: [facility], CT, CT ABDOMEN PELVIS W CON, 05/10/2019, 15:33. FINDINGS: Image quality: Excellent. Lung bases: Lung bases are clear. Heart size is enlarged, no pericardial effusion. Urinary system: Both kidneys are normal in size and enhancement. Mild prominence of left renal collecting system is seen new since previous study. There is moderate amount of hypodense fluid surrounding the proximal to mid left ureter which is mildly dilated. Normal contrast excretion into bilateral renal pelvis is seen with normal contrast filling of bilateral proximal to mid ureters. There is abrupt disruption of the contrast filled left ureter approximately 1.6 cm proximal to left UVJ and extravasated contrast material surrounding the distal left ureter extending to left and right left retroperitoneal space as well as dependent portion of bilateral paracolic gutter. Finding is highly suspicious for transected distal left ureter. Contrast opacified portion of right ureter shows normal size and appearance. Contrast material is noted within the urinary bladder dependent portion. Bladder wall thickness is normal. Solid organs: Liver is normal in size and enhancement. Multiple small hypodensities are again seen scattered in right and left hepatic lobes and likely represent small cysts or hemangioma unchanged from prior study. Gallbladder is within normal limits. Biliary system is non dilated. Pancreas enhances normally. Spleen is normal in size and enhancement. No adrenal nodules. Peritoneum and bowel: Bowel loops demonstrate normal wall thickness and caliber. No peritoneal free air is seen. Nodes and vessels: No retroperitoneal or mesenteric adenopathy by size criteria. Aorta and inferior vena cava are normal in size. Abdominal wall: No ventral hernias. Postsurgical changes are noted in anterior abdominal wall with subcutaneous emphysema. Pelvis: Patient is status post interval resection of previously noted left adnexal cystic mass. Uterus and right adnexa show no gross abnormality. No inguinal hernias or adenopathy. Bones: No suspicious bony lesions. No vertebral body compression fractures. IMPRESSION: 1. Finding is highly suggestive of transected left distal ureter with extravasated contrast into left retroperitoneal space and dependent portion of bilateral paracolic gutter. There is fluid surrounding mid-distal ureter suggestive of early neuroma formation. 2. Right ureter is grossly intact. Bilateral kidneys are normal in size and show normal enhancement. 3. Interval resection of previously noted large left adnexal cystic mass with postsurgical changes in anterior abdominal wall. No peritoneal free air. Dictated by: Ede Hernandez M.D. on 06/10/2019 at 13:17 Approved by: Ede Hernandez M.D. on 06/10/2019 at 14:06
[2019-06-10 14:00] LABS: WBC Urine None Seen (0-5/HPF)
[2019-06-10 14:14] LABS: Appearance Urine UA CLEAR; Bilirubin Urine UA NEGATIVE (NEGATIVE); Color Urine UA YELLOW; Glucose Urine UA NEGATIVE (Negative); Ketones Urine UA NEGATIVE (NEGATIVE); Leukocyte Esterase Urine UA NEGATIVE (NEGATIVE); Nitrite Urine UA NEGATIVE (Negative); Occult Blood Urine UA TRACE-LYSED (Negative); Protein Urine UA NEGATIVE (Negative); Specific Gravity Urine UA <=1.005 (1.000-1.035); Urobilinogen Urine UA 0.2 E.U./dL (0.2)
[2019-06-10 14:25] LABS: Bacteria Urine Occasional (0-1); Culture Indicated Urine Cult Not Indicated; RBC Urine 0-1/HPF (0-5/HPF)
== END ==
PROVIDERS: PCP Family Medicine; Referring Provider Obstetrics & Gynecology; Visit Provider Obstetrics & Gynecology
DX: R10.9 Unspecified abdominal pain (principal); G89.18 Other acute postprocedural pain
CPT/HCPCS: 36415; 74177; 80053; 81001; 85025; Q9967

== ENCOUNTER 2019-06-10 14:17 | Inpatient (IN) | payer OTHER, SELFPAY ==
[2019-06-06 15:00] VITALS: BMI 32.4
[2019-06-10 14:29] VITALS: BMI 32.4
--- NOTE | 2019-06-10 14:44 | PC.NURSE ---
received direct admit pt from clinic- via wheelchair- iv started to rfa (22g) hypertension noted and pt c/o significant abd pain rat- abd soft , c/o significant abd pain rating it 15 on 1-10 scale- no active orders at this time- NPO - PT HAD OVARIAN CYST SURGERY ON Monday
[2019-06-10 14:49] VITALS: BP 157/72; PULSE 79; RESP 18; TEMP 36.6; O2SAT 99
--- NOTE | 2019-06-10 14:58 | PM.GYNHP.1 ---
History of Present Illness History of Present Illness Narrative: Kacy Taylor is a 48 year old female who is 5 days status post laparoscopic left salpingo-oophorectomy for removal of a large left ovarian endometrioma vs old hemorrhagic cyst, also s/p right distal salpingectomy and D&C hysteroscopy. She is being admitted with a left ureteral injury, for further management and treatment. Urologist, Dr. Kelly has been consulted. The patient had initially some normal postoperative discomfort, but yesterday had increased abdominal discomfort, breaking through her oxycodone. Today the pain increased to severe, unrelieved with oxycodone, Tylenol and ibuprofen. Pain is intermittent, crampy in feeling. Was more in her right lower abdomen earlier this am then became midline. She also felt like her abdomen was becoming distended. She was brought in for further evaluation. Pain intensified after I saw her in the office and she was in the waiting room to have a CT scan. I saw her there and she reported discomfort was now also on her left back. Review of systems: Positive for flatus and having soft BMs, last yesterday. Denies fever, chills, dysuria or difficulty with defecation. 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) Surgical History (Updated 06/10/19 @ 15:42 by Alexa Brownlee MD) H/O unilateral oophorectomy (Acute ~05/2019) Hx of coronary angioplasty (Acute 04/22/18) Hx of heart artery stent (Resolved ~04/2018) Status post delivery (Resolved 12/16/10) Status post eye surgery (Resolved) Family History Mother Breast cancer Social History marital status: details: carlos Taylor, lives in [facility] number of children: 3 household members: spouse, children and other lives independently: Yes caregiver/support person: No housing: house 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) nithin/orthodoxy: [employer] Smoking Status: Former smoker alcohol intake: current Meds Home Medications and Allergies Home Medications Medication Instructions Recorded Confirmed Type aspirin 81 mg PO DAILY #0 11/01/10 06/10/19 History montelukast 10 mg PO DAILY PRN #0 09/19/17 06/10/19 History cholecalciferol (vitamin D3) 50 4,000 unit PO DAILY 11/28/18 06/10/19 History mcg (2,000 unit) capsule ferrous sulfate 325 mg (65 mg 325 mg PO DAILY tab 11/28/18 06/10/19 History iron) tablet fluoxetine 10 mg tablet 20 mg PO DAILY 11/28/18 06/10/19 History melatonin 5 mg tablet 5 mg PO BID 11/28/18 06/10/19 History vitamin B complex 1 tab PO DAILY 11/28/18 06/10/19 History Oral Appliance #1 ea 02/21/19 06/10/19 Rx pantoprazole 20 mg tablet,delayed 40 mg PO BID tab 05/16/19 06/10/19 History release tramadol 50 mg tablet 50 mg PO BID PRN #14 tab 05/16/19 06/10/19 Rx trospium 60 mg capsule,extended 60 mg PO QAM 05/16/19 06/10/19 History release 24 hr atorvastatin 80 mg tablet 40 mg PO DAILY tab 05/30/19 06/10/19 History albuterol sulfate 2 puff INHALATION Q4-6H PRN 06/04/19 06/10/19 History cetirizine 10 mg PO DAILY PRN 06/04/19 06/10/19 History cyanocobalamin (vitamin B-12) 2,500 mcg PO DAILY 06/04/19 06/10/19 History [Vitamin B-12] magnesium citrate 400 mg PO DAILY 06/04/19 06/10/19 History metoprolol tartrate 25 mg PO BID 06/04/19 06/10/19 History mometasone-formoterol [Dulera] 2 puff INHALATION BID 06/04/19 06/10/19 History nitroglycerin 0.4 mg SUBLINGUAL Q5-15M PRN 06/04/19 06/10/19 History omega 3-pmj-pgs-fish oil 1 cap PO DAILY 06/04/19 06/10/19 History tiotropium bromide [Spiriva with 1 cap INHALATION DAILY PRN 06/04/19 06/10/19 History HandiHaler] valsartan 80 mg PO DAILY 06/04/19 06/10/19 History ibuprofen 800 mg tablet 800 mg PO Q8H PRN #60 tab 06/06/19 06/10/19 Rx oxycodone 5 mg capsule 10 mg PO Q6H PRN #20 cap 06/06/19 06/10/19 Rx Allergies Allergy/AdvReac Type Severity Reaction Status Date / Time lisinopril AdvReac Cough Verified 06/10/19 10:35 Exam Vital Signs (past 8 hours): - 06/10/19 14:49 Temperature 97.9 F Pulse Rate 79 Respiratory Rate 18 Blood Pressure 157/72 H Pulse Oximetry 99 Oxygen Flow Rate 0 Narrative Exam Narrative: General: Appears uncomfortable, non-ill appearing Back: Positive for left CVA tenderness Abdomen: Distended, mildly tympanic. [id number] tenderness and upper abdomen above the umbilicus, mild tenderness diffusely in lower abdomen. Diffuse ecchymotic area around right lower abdominal port extending to midline and small ecchymotic area around suprapubic and left lower quadrant incision. Dressings removed from the incisions. All incisions dry, without discharge, negative for erythema or other signs of infection. Steri-Strips left in place Objective Imaging CT scan - pelvis: My impression: As below, apparent left ureteral injury, interruption. Also some left ureteral dilatation proximal to the interrupted area. Radiologist's impression: [address] [address] [address] report PROCEDURE: CT ABDOMEN PELVIS W CON INDICATIONS: R10. 9 ABD PAIN TECHNIQUE: After the administration of intravenous contrast, 5 mm thick images acquired from the diaphragm to the symphysis pubis after a 10-minute delay. 2 mm thick coronal and sagittal reformats were then performed of the kidneys and ureters. For radiation dose reduction, the following was used: automated exposure control, adjustment of mA and/or kV according to patient size. COMPARISON: [facility], CT, CT ABDOMEN PELVIS W CON, 05/10/2019, 15:33. FINDINGS: Image quality: Excellent. Lung bases: Lung bases are clear. Heart size is enlarged, no pericardial effusion. Urinary system: Both kidneys are normal in size and enhancement. Mild prominence of left renal collecting system is seen new since previous study. There is moderate amount of hypodense fluid surrounding the proximal to mid left ureter which is mildly dilated. Normal contrast excretion into bilateral renal pelvis is seen with normal contrast filling of bilateral proximal to mid ureters. There is abrupt disruption of the contrast filled left ureter approximately 1.6 cm proximal to left UVJ and extravasated contrast material surrounding the distal left ureter extending to left and right left retroperitoneal space as well as dependent portion of bilateral paracolic gutter. Finding is highly suspicious for transected distal left ureter. Contrast opacified portion of right ureter shows normal size and appearance. Contrast material is noted within the urinary bladder dependent portion. Bladder wall thickness is normal. Solid organs: Liver is normal in size and enhancement. Multiple small hypodensities are again seen scattered in right and left hepatic lobes and likely represent small cysts or hemangioma unchanged from prior study. Gallbladder is within normal limits. Biliary system is non dilated. Pancreas enhances normally. Spleen is normal in size and enhancement. No adrenal nodules. Peritoneum and bowel: Bowel loops demonstrate normal wall thickness and caliber. No peritoneal free air is seen. Nodes and vessels: No retroperitoneal or mesenteric adenopathy by size criteria. Aorta and inferior vena cava are normal in size. Abdominal wall: No ventral hernias. Postsurgical changes are noted in anterior abdominal wall with subcutaneous emphysema. Pelvis: Patient is status post interval resection of previously noted left adnexal cystic mass. Uterus and right adnexa show no gross abnormality. No inguinal hernias or adenopathy. Bones: No suspicious bony lesions. No vertebral body compression fractures. IMPRESSION: 1. Finding is highly suggestive of transected left distal ureter with extravasated contrast into left retroperitoneal space and dependent portion of bilateral paracolic gutter. There is fluid surrounding mid-distal ureter suggestive of early neuroma formation. 2. Right ureter is grossly intact. Bilateral kidneys are normal in size and show normal enhancement. 3. Interval resection of previously noted large left adnexal cystic mass with postsurgical changes in anterior abdominal wall. No peritoneal free air. Dictated by: Ede Hernandez M.D. on 06/10/2019 at 13:17 Approved by: Ede Hernandez M.D. on 06/10/2019 at 14:06 Labs Labs: WBC 10.6, hemoglobin 11.6, hematocrit 35, platelets 376 CMP shows creatinine 1.30, increased from 0.6. AST ALT normal Assessment & Plan Assessment and plan (1) Left ureteral injury: Problem details: After laparoscopic left salpingo oophorectomy of a large hemorrhagic ovarian cyst or endometrioma, now 5 days postop. I discussed the findings with the patient and her , and discussed with them that I spoke with urologists already. Discussed admitting and surgery to treat. Questions answered. Plan: Urologist, Dr. Kelly consulted. Pt will be added on to the OR later today. He will review the pictures, regarding operative procedure. He will meet with the patient later today. Patient admitted NPO IV fluids started IV morphine for pain Urinalysis added to also screen for infection, per Urology recommendation Current visit: Yes Status: Acute Quality VTE Deep Vein Thrombosis/Pulmonary Embolism Present on Admission: No
[2019-06-10] MEDS: LACTATED RINGERS 1,000 ML 100 ML IV (15:05)
[2019-06-10] MEDS: MORPHINE 2 MG/ML INJ IV ×3 (15:05→17:33)
[2019-06-10] MEDS: MORPHINE 2 MG/ML INJ 1 MG IV ×2 (15:58→17:45)
[2019-06-10] MEDS: HYDROMORPHONE 0.5 MG INJ 0.25 MG IV (18:25)
--- NOTE | 2019-06-10 18:26 | P.CONS_ITS ---
History of Present Illness Consult details Date Patient Seen: 06/10/19 Time Patient Seen: 18:27 Chief complaint: Uretheral injury Reason for consult: Left ureteral injury Requesting provider: Alexa Brownlee Narrative: The patient is a 40-year-old woman status post laparoscopic left oophorectomy on 06/06/2019. She developed increasing pain in the abdomen that was generalized over the last 24-48 hours. She denies having had fever or dysuria or flank pain. She was seen in the patient registration clerk clinic and a CT of the abdomen with contrast was ordered this day. Findings are significant for a left hydronephrosis to at least the mid ureter and evidence of extravasation of contrast in the pelvis there was associated free fluid in the the colic gutters and recesses of the pelvis. Urology consultation is requested. Meds Home Medications and Allergies Home Medications Medication Instructions Recorded Confirmed Type aspirin 81 mg PO DAILY #0 11/01/10 06/10/19 History montelukast 10 mg PO DAILY PRN #0 09/19/17 06/10/19 History cholecalciferol (vitamin D3) 50 4,000 unit PO DAILY 11/28/18 06/10/19 History mcg (2,000 unit) capsule ferrous sulfate 325 mg (65 mg 325 mg PO DAILY tab 11/28/18 06/10/19 History iron) tablet fluoxetine 10 mg tablet 20 mg PO DAILY 11/28/18 06/10/19 History melatonin 5 mg tablet 5 mg PO BID 11/28/18 06/10/19 History vitamin B complex 1 tab PO DAILY 11/28/18 06/10/19 History Oral Appliance #1 ea 02/21/19 06/10/19 Rx pantoprazole 20 mg tablet,delayed 40 mg PO BID tab 05/16/19 06/10/19 History release tramadol 50 mg tablet 50 mg PO BID PRN #14 tab 05/16/19 06/10/19 Rx trospium 60 mg capsule,extended 60 mg PO QAM 05/16/19 06/10/19 History release 24 hr atorvastatin 80 mg tablet 40 mg PO DAILY tab 05/30/19 06/10/19 History albuterol sulfate 2 puff INHALATION Q4-6H PRN 06/04/19 06/10/19 History cetirizine 10 mg PO DAILY PRN 06/04/19 06/10/19 History cyanocobalamin (vitamin B-12) 2,500 mcg PO DAILY 06/04/19 06/10/19 History [Vitamin B-12] magnesium citrate 400 mg PO DAILY 06/04/19 06/10/19 History metoprolol tartrate 25 mg PO BID 06/04/19 06/10/19 History mometasone-formoterol [Dulera] 2 puff INHALATION BID 06/04/19 06/10/19 History nitroglycerin 0.4 mg SUBLINGUAL Q5-15M PRN 06/04/19 06/10/19 History omega 4-mbu-khq-fish oil 1 cap PO DAILY 06/04/19 06/10/19 History tiotropium bromide [Spiriva with 1 cap INHALATION DAILY PRN 06/04/19 06/10/19 History HandiHaler] valsartan 80 mg PO DAILY 06/04/19 06/10/19 History ibuprofen 800 mg tablet 800 mg PO Q8H PRN #60 tab 06/06/19 06/10/19 Rx oxycodone 5 mg capsule 10 mg PO Q6H PRN #20 cap 06/06/19 06/10/19 Rx Allergies Allergy/AdvReac Type Severity Reaction Status Date / Time lisinopril AdvReac Cough Verified 06/10/19 10:35 Review of Systems Review of Systems ROS: Yes All systems reviewed with the patient and are negative except as otherwise documented (Abdominal, and pelvic pain) Exam Vital Signs (past 8 hours): - 06/10/19 14:49 Temperature 97.9 F Pulse Rate 79 Respiratory Rate 18 Blood Pressure 157/72 H Pulse Oximetry 99 Oxygen Flow Rate 0 Narrative Exam Narrative: She had 1st was sitting upright in a chair riding and moaning. She then transferred to the bed with assistance and her pain was not apparently relieve she remained in moderate to severe distress due to pain. Head and neck exam unremarkable. Chest equal and clear bilaterally. Heart rate 95-100 regular. Abdomen is round mildly firm and generalized tenderness throughout. There is increased tenderness in the infra umbilical area and there is associated ecchymosis of the abdominal wall in this region as well. Periumbilical and left abdominal laparoscopic incisions are intact and without erythema. Objective ECG Impression: 1. Left ureteral injury status post left laparoscopic nephrectomy 06/06/2019. Labs Labs: Laboratory Results - last 24 hr 06/10/19 15:16 Blood Type O Positive Antibody Screen Negative Assessment & Plan Assessment & Plan narrative: 1. Left distal ureteral injury status post left oophorectomy 06/06/2019. 2. Urinoma. Plan: I explained in detail and length the nature of the injury and the current circumstances. I discussed options with them in detail. Specifically a retrograde approach with cystoscopy, retrograde pyelogram and possibly passage of a retrograde wire and subsequent stent for internal diversion would be highly preferable. Explained further that if this is not possible a percutaneous nephrostomy would be required and an external drainage via the percutaneous nephrostomy would be likely required for period of at least 3 months before formal left ureteral alexis cystostomy could be performed. I explained that currently interventional Radiology is not staffed at [facility]. I further explained the rather lengthy add on operative volume at this time. Mr. Taylor's primary concern current lead is pain management. I discussed with he and Dr. Brownlee, the possibility of an epidural anesthetic. In the meantime a patient-controlled anesthesia device could be utilized to more optimally provide pain control. I also spoke with Dr. Brownlee and staff nurse performance of a bladder scan and placement of Cruz catheter if high bladder volume is measured. Finally recommend a TK0 IV rate. They are going to if further contemplate option for transfer of care given current high add on case load and significant possibility that a percutaneous nephrostomy will ultimately be required.
--- NOTE | 2019-06-10 20:22 | PM.PN.1 ---
Subjective Subjective Date Patient Seen: 06/10/19 Time Patient Seen: 20:22 Interval history: Came to see pt around 1800 due to pain not being controlled with the morphine. She initially received decrease in pain but now off only lasting about [address] Merritt had just finished meeting with the patient and her to review treatment prcedures and options. See his note. Suggestion was given of attempting epidural if pain not controlled. Patient switched to IV Dilaudid and did receive improvement with 1 dose of this. Dilaudid ELECTRONIC PUBLISHING SPECIALIST ordered, but then pharmacy this came to floor and reported ELECTRONIC PUBLISHING SPECIALIST has been unavailable for few months, due to lack of being able to order/obtain into the hospital. IV Tylenol every 6 hours also ordered, but reserved for in the OR only. He was able to obtain 1 dose and 1 g IV Tylenol given. I spoke with the anesthesiologist regarding an epidural, and anesthesiologist secretary to board of commissioners told me that it would not help with the patient's discomfort since it could not help with peritoneal discomfort. This did make sense and I discussed with the patient since she had preferred to try this option to try to get better pain relief. She did report that the Dilaudid work better and the 1 dose decreased her pain significantly. Will change her to SQ Dilaudid, to attempt longer lasting relief between pain shots. Due to multiple add on emergency cases in the OR today, patient was on long list and still would be many hours. At this time options reviewed with her by the urologist and I then subsequently reviewed the options with her. I did discuss if the cystoscopy, attempted retrograde stent was unsuccessful, then apparently unable to proceed with a nephrostomy here and she would need to be transferred. Gave them the option of transferring now to be at the same institution if needed to proceed with the subsequent procedure. Initially they contemplated transfer, but ultimately decided to stay, to be closer to home and have the attempted cystoscopy procedure tomorrow. At this point since it would be many hours, and felt not to ultimately make a difference since it has been a few days since her laparoscopy, decision was made by the urologist to at this point reschedule for the OR here tomorrow and keep her comfortable. She is the 1st add on for tomorrow. I told the patient that I told the nurses to call me if she was not receiving adequate pain relief tonight, and that she could request that herself as well if she felt her pain was not decreased enough. I discussed that the shock could be repeated at this time every 3 hours if needed for pain, and will increase the dose if she needs it. Exam Vital Signs (past 8 hours): - 06/10/19 14:49 Temperature 97.9 F Pulse Rate 79 Respiratory Rate 18 Blood Pressure 157/72 H Pulse Oximetry 99 Oxygen Flow Rate 0 Objective Labs Labs: Laboratory Results - last 24 hr 06/10/19 15:16 Blood Type O Positive Antibody Screen Negative Quality VTE Deep Vein Thrombosis/Pulmonary Embolism Present on Admission: No
[2019-06-10] MEDS: HYDROMORPHONE 2 MG INJ SUBCUT ×2 (20:37→23:57)
[2019-06-10] MEDS: ACETAMINOPHEN IV 1,000 MG/100 ML VIAL 400 MG IV (20:38)
[2019-06-10 20:45] VITALS: BP 132/75; PULSE 101; RESP 18; TEMP 36.7
[2019-06-10] MEDS: DOCUSATE 100 MG CAPSULE PO (21:54)
[2019-06-10 23:25] VITALS: BP 162/106; PULSE 96; RESP 18; TEMP 36.7; O2SAT 95
[2019-06-10] MEDS: ATORVASTATIN 20 MG TABLET 40 MG PO (23:57)
[2019-06-10] MEDS: METOPROLOL IR 25 MG TABLET PO (23:57)
[2019-06-10] MEDS: PANTOPRAZOLE 20 MG TABLET 40 MG PO (23:57)
[2019-06-11] VITALS (18 sets, daily range): BP systolic 94–158; BP diastolic 48–95; PULSE 92–108; RESP 15–104; TEMP 36.1–38.1; O2SAT 92–100; BMI 32.4
--- NOTE | 2019-06-11 | DI.RAD.S_ITS ---
PROCEDURE: FL PYELOGRAM RETROGRADE COMPARISON: None. INDICATIONS: left kidney stent placement FINDINGS: Single intraoperative fluoroscopic image of upper abdomen demonstrates the proximal end of a double-J left ureteral stent. No gross abnormalities identified on this limited single view of the upper abdomen. Please refer to operative note for further details. IMPRESSION: Left double-J ureteral stent placement. Dictated by: Jarek Aquino M.D. on 06/11/2019 at 22:13 Approved by: Jarek Aquino M.D. on 06/11/2019 at 22:15
[2019-06-11] MEDS: MORPHINE 2 MG/ML INJ IV (01:47)
[2019-06-11] MEDS: HYDROMORPHONE 2 MG INJ SUBCUT (02:58)
[2019-06-11 03:42] LABS: Pregnancy Test Urine Negative (Negative)
--- NOTE | 2019-06-11 05:35 | P.PN_ITS ---
Subjective Subjective Date Patient Seen: 06/11/19 Time Patient Seen: 05:35 Interval history: Came in to see pt, adjust pain medication. I called in to check on pt when I noted a phone call did not ring through on phone. Dr vice president of communications had then been called and dose of IV Morphine ordered, but without improvement.. REported that pt also feeling need to urinate and not able to go. Bladder scan ordered and then to place Cruz after 300ml recorded. Had checked on her at 2300 and sleeping. Pt reports after first shot of pain med, no longer receiving relief. Exam Vital Signs (past 8 hours): - 06/10/19 23:25 06/11/19 02:27 Temperature 98.0 F 98.0 F Pulse Rate 96 H 99 H Respiratory Rate 18 18 Blood Pressure 162/106 H 154/95 H Pulse Oximetry 95 97 Oxygen Delivery Method Room Air Oxygen Flow Rate 0 Narrative Exam Narrative: Assisted with Cruz placement. urine drained for approx 300 ml currently. Objective Labs Labs: Laboratory Results - last 24 hr 06/10/19 06/11/19 15:16 03:30 Urine Test Negative Blood Type O Positive Antibody Screen Negative Assessment & Plan Assessment & Plan narrative: Pain control. Cruz placed. Demerol 50mg/Vistaril 25mg ordered q 4 hr, being given now. l Quality VTE Deep Vein Thrombosis/Pulmonary Embolism Present on Admission: No
[2019-06-11] MEDS: hydrOXYzine 50 MG/ML INJ 25 MG IM ×3 (05:58→21:12)
[2019-06-11] MEDS: MEPERIDINE 50 MG/ML INJ IM ×2 (05:59→10:58)
[2019-06-11] MEDS: LACTATED RINGERS 1,000 ML 100 ML IV (06:03)
--- NOTE | 2019-06-11 06:24 | PM.PN.1 ---
Subjective Subjective Date Patient Seen: 06/11/19 Time Patient Seen: 06:27 Interval history: Pt sleeping lightly, snoring. On saying her name and inquiring if pain better, she reports it is. Exam Vital Signs (past 8 hours): - 06/10/19 23:25 06/11/19 02:27 Temperature 98.0 F 98.0 F Pulse Rate 96 H 99 H Respiratory Rate 18 18 Blood Pressure 162/106 H 154/95 H Pulse Oximetry 95 97 Oxygen Delivery Method Room Air Oxygen Flow Rate 0 Narrative Exam Narrative: General: resting better. pain decreased but then still some on left lower side Abdomen distended. Area of old ecchymosis RLQ to mid abdomen unchanged (extending from lap port sites) Extr: SCDs in place. No edema Objective Labs Labs: Laboratory Results - last 24 hr 06/10/19 06/11/19 15:16 03:30 Urine Test Negative Blood Type O Positive Antibody Screen Negative Assessment & Plan Assessment and plan (1) Left ureteral injury: Current visit: Yes Status: Acute Assessment & Plan narrative: Pain medication changed to Demerol/Vistaril with improvement in pain control. On OR scheduled today with urology. Quality VTE Deep Vein Thrombosis/Pulmonary Embolism Present on Admission: No
[2019-06-11] MEDS: MEPERIDINE 50 MG/ML INJ 25 MG IV (06:54)
--- NOTE | 2019-06-11 07:07 | PC.NURSE ---
Pt having severe pain overnight. The subq Dilaudid was not giving her good pain relief anymore so Dr. Griffin called and ordered 2mg IV morphine which didn't do much either. She was having a hard time voiding due to pain as well. She voided twice for a total of 150cc but bladder scanned in the morning showed 300mL. Dr. Brownlee at bedside starting at around [address] an indwelling aguilar catheter. Demerol IM was ordered for pt for pain control with Dr Brownlee stating it can be given every 3hrs if pt having severe pain and unable to reach the 4hour emily inbtwn pain meds. Vistaril IM given as well. LR switched to @TKO this morning. Kept NPO HTN test negative
--- NOTE | 2019-06-11 08:24 | PC.NURSE ---
Day shift: Talked w/ Dr Brownlee about Pt's pain 8 after the IM demerol. Can't have more unit 0900. is going to add another one time dose. Will continue to monitor. Call light in reach.
[2019-06-11] MEDS: MEPERIDINE 50 MG/ML INJ 25 MG IM ×2 (08:55→14:25)
--- NOTE | 2019-06-11 14:39 | CM.DANOTE ---
Discharge Planning/Care Management DCP: assessment: case received, EMR reviewed. Discussed in Team Rounds. Pt is a 48 year old female who admitted yesterday afternoon to care of OBGYN: Alexa Brownlee Payer: [facility] Admission status: INPT: confirmed by UR RN Bo. PCP: Jose Alvarez Pt lives on [facility] [facility] [address] [facility], in [place] with her . Pt with urethral injury reportedly occurring during a gynecological surgery a few days ago. Consulting: urology: Dr. Merritt: plan is to take pt to surgery this afternoon. P: DCP team to follow as POC unfolds and check in after surgery to offer assist with d/c issues and options. CM Discharge Assessment Start: 06/11/19 14:38 Freq: Status: Active Protocol: Document 06/11/19 14:39 ITV (Rec: 06/11/19 14:39 ITV [id number]) Discharge Planning Assessment Advance Directives? No Advance Directives on File No History Provided By Patient,Medical Record Prior Living Arrangements House Household Members spouse,children,other Whiteboard Updated in Patient Room with Yes name and ext. # of Ad Terminal Makeup Operator Review Status In Process
[2019-06-11] MEDS: fentaNYL 100 MCG/2 ML INJ 50 MCG IV ×2 (16:40→16:51)
[2019-06-11] MEDS: LACTATED RINGERS 1,000 ML 42 ML IV (16:40)
--- NOTE | 2019-06-11 17:00 | PM.PREOP ---
Pre-operative Note Interval Note History & Physical reviewed/Exam performed by Physician: Yes Changes to H&P: No H&P completed within 30 days and has changed as indicated here:: No changes to consultation 06/10/2019.
[2019-06-11] MEDS: CEFAZOLIN 2 GM/100 ML FROZ.PIGGY IV (17:15)
--- NOTE | 2019-06-11 17:32 | SUR.OPER ---
Lithotomy on padded OR bed, head on pillow, right arm secured on padded arm boards at <90 degrees abduction, left arm padded with gel pad and tucked at side, Legs secured in padded yellow fins stirrups.
[2019-06-11] MEDS: IOPAMIDOL 15 ML VIAL 30 ML INJ (17:40)
[2019-06-11] MEDS: BELLADONNA/OPIUM SUPPOSITORIES 1 EACH PR (17:43)
--- NOTE | 2019-06-11 17:48 | PM.OP.1 ---
Operative Date/Time/Diagnoses Date of procedure: 06/11/19 Time of procedure: 17:48 Pre-op diagnosis: 1. Left distal ureteral injury. 2. Urinoma Post-op diagnosis: same
--- NOTE | 2019-06-11 17:51 | PM.OP.1 ---
Operative Date/Time/Diagnoses Date of procedure: 06/11/19 Time of procedure: 17:52 Pre-op diagnosis: 1. Left ureteral injury. 2. Urinoma Post-op diagnosis: same Procedure & Clinicians Procedure: 1. Cystoscopy and left retrograde pyelogram. 2. Left ureteroscopy. 3. Cystoscopy and placement left ureteral stent (8 Central African x 24 cm). Same procedure as scheduled: Yes Indications: Left distal ureteral injury. Urinoma. Surgeon: Aj Kelly Click Yes if Unassisted: Yes Anesthesia Type: General Operative Notes Findings: Urethra and bladder urothelium normal. Grade 2 +cystocele. There was an anteromedial disruption of the left distal ureter approximately 6 cm to 7 cm proximal to the left ureterovesical junction remainder of the ureter had normal appearing urothelium. Left retrograde pyelogram revealed diffuse extravasation into the pelvis. Closure Type: not applicable Specimen(s): none sent Applied: other (Six Central African by 24 cm double-J ureteral stent) Estimated Blood Loss (mL): 0 Blood products transfused: none Tourniquet time (min): 0 Procedure in detail: The patient was positioned supine is was administered general anesthesia. She was then repositioned in semi-lithotomy in the lower abdomen genitalia and groin were prepped and draped in sterile fashion. The 22 Central African panendoscope was passed in the lower urinary tract with the findings as described above. Next a whistle-tip 5 Central African catheter was utilized to perform a left retrograde pyelogram with the findings as described above. The cystoscope was then removed and the semi rigid ureteroscope was prepared the ureteral scope was then introduced into the urethra through the bladder and advanced into the left ureteral orifice under direct visualization with the findings as described above once the scope was at the distal end of the injury I was very carefully able to advance it more proximally and angulating with a lateral word attitude was able to bridge the region of injury and then gain access to the upper ureter I then advanced the scope more proximally to the level of the ureteropelvic junction. A 0.35 guidewire was then selected and this was advanced through the ureteral scope and advanced proximally with a coil established in the left intrarenal collecting system. The ureteral scope was then back loaded carefully off the wire. The guide wire was then front loaded into the 22 Central African panendoscope. An 8 Central African, 24 cm double J ureteral stent was then selected. This was then advanced over the wire under direct and fluoroscopic guidance. No retrieval line was left attached. The bladder was then drained completely and the panendoscope was removed. The patient was repositioned in supine, awakened, and transferred to a gurney and transferred to recovery in stable condition. Complications: none Post-operative Condition: stable Disposition: PACU Plan for aftercare: Transfer to acute care.
--- NOTE | 2019-06-11 18:07 | SUR.PHASEI ---
Pt. denies pain while in PACU, VVS, peripad with scant drng - (looks like urine)
[2019-06-11] MEDS: ATORVASTATIN 20 MG TABLET 40 MG PO (21:11)
[2019-06-11] MEDS: PANTOPRAZOLE 20 MG TABLET 40 MG PO (21:12)
[2019-06-11] MEDS: OXYCODONE/ACETAMINOPHEN 5/325 TABLET 1 TAB PO (21:13)
[2019-06-12] VITALS (7 sets, daily range): BP systolic 138–156; BP diastolic 75–86; PULSE 93–101; RESP 16; TEMP 36.7–37.2; O2SAT 92–97
[2019-06-12] MEDS: OXYCODONE/ACETAMINOPHEN 5/325 TABLET 1 TAB PO ×2 (03:39→13:02)
--- NOTE | 2019-06-12 05:44 | PC.NURSE ---
Pt alert and oriented overnight, Briskly aroused when awoken, no oversedation. Pt rested with complaint of one time. Rated 6/10 at abdomen. Administered 1 tab of percocet with good effect as pt stated pain was tolerable on reassessment. Pt lap sites x3 intact, no redness. Pt voiding red urine post ureteral stent placement. Denies bladder, urethra pain. Pt states stent expected to remain in place for 6 weeks. Plan to restart metoprolol this AM. Pt expecting to discharge today.
[2019-06-12] MEDS: PANTOPRAZOLE 20 MG TABLET 40 MG PO (08:32)
[2019-06-12] MEDS: ASPIRIN EC 81 MG TABLET PO (08:33)
[2019-06-12] MEDS: FLUoxetine 10 MG CAPSULE 30 MG PO (08:33)
[2019-06-12] MEDS: DOCUSATE 100 MG CAPSULE PO (08:33)
[2019-06-12] MEDS: CLOPIDOGREL 75 MG TABLET PO (08:34)
--- NOTE | 2019-06-12 11:18 | PC.NURSE ---
Patient states that per pain level is a 5/10 but she is tolerating this pain, and her pain level when she first came into the ER was a 20/10. Patients has tea colored urine and she is voided 900cc this morning. Patient will hopefully be going home today to [facility] and we will make sure that she has a ferry pass before leaving.,
--- NOTE | 2019-06-12 12:47 | P.PN_ITS ---
Subjective Subjective Date Patient Seen: 06/12/19 Time Patient Seen: 12:35 Interval history: Patient is status post cystoscopy and left ureteral stent placement last night by Dr. Kelly urology. She reports feeling much better. Her pain was much improved after the procedure. I checked in on her at 11:00 p.m. and she was sound asleep. She reports that she did sleep well overnight. She is using some oxycodone for abdominal discomfort yet but pain is fully r elieved with the oxycodone and she has been ambulating in the room. She is tolerating a regular diet, having breakfast and lunch. No flatus yet this morning but she had been having routine flatus. No BM now x2 days. Denies any fever chills. She is urinating without difficulty voiding large amounts. She feels well and is looking for to going home, desires discharge. Exam Vital Signs (past 8 hours): - 06/12/19 06:00 06/12/19 08:00 06/12/19 10:03 Temperature 98.3 F Pulse Rate 95 H 100 H Respiratory Rate 16 16 Blood Pressure 156/75 H Pulse Oximetry 93 96 97 06/12/19 11:24 Temperature 99 F Pulse Rate 101 H Respiratory Rate 16 Blood Pressure 144/75 H Pulse Oximetry 96 Oxygen Delivery Method Room Air Oxygen Flow Rate 0 Narrative Exam Narrative: General: Well-appearing female, appears comfortable Abdomen: Mildly distended. Nontender. Laparoscopy incisions healing well, and no signs of infection or drainage. Old ecchymosis turning more yellow now c/w with old bruising around right lower abdominal port extending to mid abdomen. Interrupted sutures visible, present and LLQ and suprapubic port sites. She declines removal today. Extremities negative for edema Assessment & Plan Assessment and plan (1) Left ureteral injury: Current visit: Yes Status: Acute Assessment & Plan narrative: Left ureteral injury, status post laparoscopic LSO, now status post left ureteral stent last night. Patient feels much better now status post stent placement. Discharge home today. Will discharge on oxycodone for some continued abdominal discomfort with the distention and her abdominal incisions from the laparoscopy Follow up in the office with me in 1 week. She will follow up with Dr. Kelly in Urology in [address] urogram at that time. Questions answered regarding general description of cystoscopy procedure in sent placement. Quality VTE Deep Vein Thrombosis/Pulmonary Embolism Present on Admission: No
[2019-06-12] MEDS: IBUPROFEN 400 MG TABLET 800 MG PO (13:39)
--- NOTE | 2019-06-20 18:24 | PM.DS.1 ---
History of Present Illness History of Present Illness Date Patient Seen: 06/12/19 Time Patient Seen: 12:50 Chief complaint: admitted for left ureteral injury post-op Narrative: 48-year-old female admitted for days postop status post laparoscopic left salpingo oophorectomy, for a left ureteral injury. See admission History and Physical. Discharge Providers Provider Date of admission: 06/10/19 14:17 Discharge Date: 06/13/19 Primary care physician: Jose Alvarez MD Consults: 06/11/19 16:20 Consult to Respiratory Therapy Evaluate & Treat Comment: Physician Instructions: Evaluate and treat 06/11/19 18:09 Consult to Discharge Planning Routine Comment: Discharge provider: Alexa Brownlee MD Summary Hospital Course Hospital Course: She was admitted, given pain medication and IV fluids while NPO awaiting surgery. Urology was consulted and she was added to the OR schedule as an add-on case for a cystoscopy and left ureteral stent placement. Due to a large amount of add on OR cases, this was performed the next day in the afternoon on 06/12/2019. Her pain meds were adjusted as it was difficult to initially obtained relief with her, obtaining initial relief, but then with subsequent doses, the same pain medication would not work well for her. Initially she was given morphine, then Dilaudid. Ultimately pain medication was changed to Demerol with Vistaril and her discomfort was more tolereable such that she could sleep on and off. She underwent cystoscopy with left ureteral stent placement on 06/12/[address] Kelly, urology. She obtained significant relief in her discomfort after the procedure. She slept well overnight and continued to do well, with only needing occasional oxycodone to help with discomfort. She was tolerating a regular diet, ambulating, and was voiding without difficulty. She desired and was discharged home on 06/13/2019, doing well. Exam Vital Signs (past 8 hours): Oxygen Delivery Method Room Air Oxygen Flow Rate 0 Narrative Exam Narrative: VS: Afebrile BP 144/75 Pulse 101 Pox 96% Exam Narrative: General: Well-appearing female, appears comfortable Abdomen: Mildly distended. Nontender. Laparoscopy incisions healing well, and no signs of infection or drainage. Old ecchymosis turning more yellow now c/w with old bruising around right lower abdominal port extending to mid abdomen. Interrupted sutures visible, present and LLQ and suprapubic port sites. She declines removal today. Extremities negative for edema Discharge Plan Discharge Plan Patient Disposition: Home Discharge comment: Your status post cystoscopy with left ureteral stent placement to treat a left ureteral injury resulting from your laparoscopic surgery. Follow-up appointments as listed. Call with any problems and for precautions/reasons listed below Discharge orders & Medications Prescriptions: New oxycodone-acetaminophen 5-325 mg Tablet See Rx Instructions .ROUTE .COMPLEX PRN (Reason: Pain, Moderate (4-6)) Qty: 14 RF: 0 Continued aspirin 81 mg Tablet,Delayed Release (Dr/Ec) 81 mg PO DAILY Qty: 0 RF: 0 oxycodone 5 mg capsule 10 mg PO Q6H PRN (Reason: pain) Qty: 20 RF: 0 ibuprofen 800 mg tablet 800 mg PO Q8H PRN (Reason: pain) Qty: 60 RF: 0 trospium 60 mg capsule,extended release 24hr 60 mg PO QAM RF: 0 montelukast 10 mg Tablet 10 mg PO DAILY PRN (Reason: asthma) Qty: 0 RF: 0 Dulera 200-5 mcg/actuation Hfa Aerosol Inhaler 2 puff INHALATION BID RF: 0 valsartan 80 mg Tablet 80 mg PO DAILY RF: 0 metoprolol tartrate 25 mg Tablet 25 mg PO BID RF: 0 omega 4-zhc-cxk-fish oil 360-1,200 mg Capsule,Delayed Release(Dr/Ec) 1 cap PO DAILY RF: 0 nitroglycerin 0.4 mg Tablet, Sublingual 0.4 mg SUBLINGUAL Q5-15M PRN (Reason: Chest Pain) RF: 0 albuterol sulfate 90 mcg/actuation Hfa Aerosol Inhaler 2 puff INHALATION Q4-6H PRN (Reason: Shortness Of Breath) RF: 0 Spiriva with HandiHaler 18 mcg Capsule, W/Inhalation Device 1 cap INHALATION DAILY PRN (Reason: asthma) RF: 0 cetirizine 10 mg Capsule 10 mg PO DAILY PRN (Reason: allergies) RF: 0 cyanocobalamin (vitamin B-12) [Vitamin B-12] 2,000 mcg Tablet Extended Release 2,500 mcg PO DAILY RF: 0 magnesium citrate 100 mg Tablet 400 mg PO DAILY RF: 0 atorvastatin 40 mg tablet 40 mg PO DAILY RF: 0 clopidogrel 75 mg tablet 75 mg PO DAILY RF: 0 tacrolimus 0.1 % ointment 1 applic TOPICAL DIRECTED RF: 0 (DME) Oral Appliance Qty: 1 RF: 0 vitamin B complex tablet 1 tab PO DAILY RF: 0 fluoxetine 10 mg tablet 30 mg PO DAILY RF: 0 ferrous sulfate [Iron (ferrous sulfate)] 325 mg (65 mg iron) tablet 325 mg PO DAILY RF: 0 cholecalciferol (vitamin D3) 2,000 unit capsule 4,000 unit PO DAILY RF: 0 melatonin 5 mg tablet 5 mg PO BID RF: 0 pantoprazole 20 mg tablet,delayed release (DR/EC) 40 mg PO BID RF: 0 Discontinued tramadol 50 mg tablet 50 mg PO BID PRN (Reason: pain) Qty: 14 RF: 0 No Action phenazopyridine 200 mg tablet 200 mg PO Q6H PRN (Reason: Bladder pain) 42 Days Qty: 30 RF: 0 Follow up/Referrals: Alexa Brownlee MD [Physician] - Jose Alvarez MD [Primary Care Provider] - Diet/Activity/Treatments Diet: Regular Activity: Gradually increase ambulation. No heavy lifting. Skin/Wound/Dressing Care Other wound treatment: May shower. Let soapy water run over incisions. Visit Report/Discharge Packet Instructions: DI for Cystoscopy, Ibuprofen (By mouth), Oxycodone/Acetaminophen (By mouth) Stand Alone Forms: Surgery Discharge Visit Report Forms: Patient Portal/API, Stroke Signs & Symptoms Discharge Data Primary Care Provider: Jose Alvarez Discharges patient from system. Discharge Date/Time: 06/12/19 14:00 Quality VTE Deep Vein Thrombosis/Pulmonary Embolism Present on Admission: No
== END 2019-06-12 14:00 | disposition home or self-care (01) | DRG 908 ==
PROVIDERS: Specialist; Admitting Provider Obstetrics & Gynecology; PCP Family Medicine; Referring Provider Obstetrics & Gynecology; Visit Provider Obstetrics & Gynecology
PROC: 0T778DZ Dilation of Left Ureter with Intraluminal Device, Via Natural or Artificial Opening Endoscopic (ICD-10-PCS; principal; 2019-06-11 16:30)
DX: N99.71 Accidental puncture and laceration of a genitourinary system organ or structure during a genitourinary system procedure (principal); N13.30 Unspecified hydronephrosis; R39.0 Extravasation of urine; I25.10 Atherosclerotic heart disease of native coronary artery without angina pectoris; K21.9 Gastro-esophageal reflux disease without esophagitis; Z87.891 Personal history of nicotine dependence; I10 Essential (primary) hypertension; G47.33 Obstructive sleep apnea (adult) (pediatric); J45.909 Unspecified asthma, uncomplicated; G89.18 Other acute postprocedural pain
CPT/HCPCS: 36415; 74177; 74420; 80053; 81001; 81025; 82962; 85025; 86850; 86900; 86901; J0131; J0690; J1100; J1170; J2175; J2270; J2405; J2704; J3010; J3410; Q9967

== ENCOUNTER → 2019-10-01 14:06 | Outpatient (CLI) | payer OTHER, SELFPAY ==
[2019-09-25 10:35] VITALS: BMI 32.4
== END ==
PROVIDERS: PCP Family Medicine; Visit Provider Specialist
DX: N39.0 Urinary tract infection, site not specified (principal)
CPT/HCPCS: 81002; 87086; 99214

== ENCOUNTER 2019-10-11 09:20 | Day surgery (SDC) | payer OTHER, SELFPAY ==
[2019-09-25 10:35] VITALS: BMI 32.4
[2019-10-11] VITALS (11 sets, daily range): BP systolic 121–164; BP diastolic 67–100; PULSE 65–83; RESP 13–20; TEMP 35.8–36.2; O2SAT 90–99; BMI 33.3
--- NOTE | 2019-10-11 | DI.RAD.S_ITS ---
PROCEDURE: [place] PYELOGRAM RETROGRADE COMPARISON: [facility], [place], CT ABDOMEN PELVIS W CON, 06/10/2019, 12:25. [facility], [place], [place] PYELOGRAM RETROGRADE, 06/11/2019, 18:22. INDICATIONS: STENT REMOVAL, RETROGRADE, DILATATION, STENT INSERTION FINDINGS: Fluoroscopic guidance for left ureteral stent retrieval and dilatation. No obvious leak. IMPRESSION: Fluoroscopic guidance for left ureteral procedure. Dictated by: Mark Merrill M.D. on 10/11/2019 at 13:04 Approved by: Mark Merrill M.D. on 10/11/2019 at 13:06
[2019-10-11] MEDS: CEFAZOLIN 2 GM/100 ML FROZ.PIGGY IV (10:11)
[2019-10-11] MEDS: LACTATED RINGERS 1,000 ML 42 ML IV ×2 (10:11→11:26)
--- NOTE | 2019-10-11 10:19 | PM.PREOP ---
Pre-operative Note Interval Note History & Physical reviewed/Exam performed by Physician: Yes Changes to H&P: No H&P completed within 30 days and has changed as indicated here:: There are no changes to the history and physical examination scanned on file.
--- NOTE | 2019-10-11 10:30 | SUR.OPER ---
Lithotomy on padded OR bed, head on pillow, arms secured on padded arm boards at <90 degrees abduction. Legs secured in padded yellow fins stirrups.
[2019-10-11] MEDS: IOPAMIDOL 15 ML VIAL INJ ×2 (11:18→11:30)
--- NOTE | 2019-10-11 11:50 | PM.OP.1 ---
Operative Date/Time/Diagnoses Date of procedure: 10/11/19 Time of procedure: 11:50 Pre-op diagnosis: History of left ureteral injury. Post-op diagnosis: same Procedure & Clinicians Procedure: 1. Cystoscopy and left retrograde pyelogram. 2. Left ureteroscopy. 3. Dilation left ureteral stricture. 4. Left ureteral stent exchange (8 Bahamian by 24 cm). Same procedure as scheduled: No (Dilation of stricture) Indications: 1. History of left ureteral injury. Surgeon: Aj Kelly Click Yes if Unassisted: Yes Anesthesia Type: General Operative Notes Findings: 1. Urethra normal. 2. Bladder-trace trabeculation with indwelling left ureteral stent. 3. There is a narrowing of the ureteral lumen with relative fixation at the level of the iliac vasculature on the left. Left retrograde pyelogram revealed proximal dilation and irregular narrowing at the site. Evaluation of the length of the stricture was difficult due to inability to fill contrast between distal extent of stenosed area and ureteral orifice. Closure Type: not applicable Specimen(s): none sent Applied: other (Eight Bahamian by 24 cm double-J left ureteral stent) Estimated Blood Loss (mL): 0 Blood products transfused: none Tourniquet time (min): 0 Procedure in detail: The patient was positioned supine and administered general anesthesia. She was then repositioned in semi-lithotomy and the lower abdomen, genitalia, and groin were prepped and draped in sterile fashion. The 22 Bahamian panendoscope was then passed in lower urinary tract with the findings as described above. A foreign body grasper was then used to engage in remove the left ureteral stent to the level of the ureter urethral me meatus. A 0.35 glidewire was then advanced through the lumen and advanced proximally under fluoroscopic guidance the old stent was then backloaded off the wire and discarded. The semi rigid ureteral scope was then prepared and introduced in lower urinary tract and advanced proximally into the left ureter with the findings as described above I was able to negotiate the area of narrowing more proximally. I was then able to perform a retrograde pyelogram at this level. Intraoperative images were retained and shows an abrupt narrowing at about the level of the iliac vasculature. There is delayed drainage of that area. Ureteral scope was then removed. An 18 Bahamian by 6 cm length balloon dilating catheter was advanced over the Glidewire. The balloon was positioned across the area of narrowing. The balloon was then inflated to 18 atmospheres and held in position for 5 minutes. The balloon was then deflated and advanced more proximally on the Glidewire. The Glidewire was then temporarily removed and a repeat retrograde pyelogram was performed. Intraoperative images were retained. The area remain narrowed despite no visible remaining waist in the balloon radiographically. The wire was then replaced, and the balloon dilating catheter was backloaded off the wire. The panendoscope was then front loaded onto the wire. A 8 Bahamian by 24 cm double-J ureteral stent was then selected. This was advanced over the glidewire under direct and fluoroscopic guidance. NO RETRIEVAL LINE WAS LEFT ATTACHED. THE BLADDER WAS DRAINED COMPLETELY AND ALL INSTRUMENTATION WAS REMOVED A FINAL TIME. The patient was then awakened, transferred to a gurney, and transported recovery in stable condition. Complications: none Post-operative Condition: stable Disposition: PACU Plan for aftercare: Discharge to home
[2019-10-11] MEDS: fentaNYL 100 MCG/2 ML INJ IV (12:12)
[2019-10-11] MEDS: ONDANSETRON 4 MG/2 ML INJ IV (12:13)
== END 2019-10-11 13:21 | disposition home or self-care (01) ==
PROVIDERS: PCP Family Medicine; Referring Provider Specialist; Visit Provider Specialist
PROC: (CPT 52332; principal; 2019-10-11 10:30)
DX: N20.1 Calculus of ureter (principal); E66.9 Obesity, unspecified; I10 Essential (primary) hypertension; I25.10 Atherosclerotic heart disease of native coronary artery without angina pectoris; G47.33 Obstructive sleep apnea (adult) (pediatric); J45.909 Unspecified asthma, uncomplicated; N13.5 Crossing vessel and stricture of ureter without hydronephrosis
CPT/HCPCS: 52332; 52341; 74420; 76000; J0690; J1100; J2405; J2704; J3010

== ENCOUNTER → 2019-11-08 15:33 | Outpatient (CLI) | payer OTHER, SELFPAY ==
[2019-10-14 09:15] VITALS: BMI 32.4
--- NOTE | 2019-11-08 15:35 | DI.NM.S_ITS ---
PROCEDURE: NM RENAL FUNCTION W LASIX RADIOPHARMACEUTICAL: 8.5 mCi Tc-99m MAG3 IV and 40 mg furosemide IV. INDICATIONS: left ureteral injury TECHNIQUE: The patient was hydrated orally before the examination was begun. After intravenous administration of Tc-99m MAG3, posterior abdominal radionuclide angiogram and sequential (1 minute each frame) renal images were obtained. A time-activity curve for each kidney was generated and analyzed. To evaluate for obstruction, the patient was given 40 mg furosemide via slow intravenous injection after the start of the examination. Sequential images were obtained for up to an additional 20 minutes. COMPARISON: [facility], , [place] PYELOGRAM RETROGRADE, 06/11/2019, 18:22. [facility], , [place] PYELOGRAM RETROGRADE, 10/11/2019, 11:17. FINDINGS: Perfusion: There is normal vascular flow to both kidneys. Morphology: Both kidneys are normal in size and shape. No dilated collecting systems are seen. The ureters and bladder fill with tracer, and appear normal. Function: Both kidneys demonstrate normal cortical tracer uptake, with smob-se-tdtv activity ranging from 3 to 5 minutes. The right kidney contributes 54.4% of total renal function. The left kidney contributes 45.6% of total renal function. Lasix stimulation: After diuretic administration, there is prompt clearance of tracer activity from the renal collecting systems in both kidneys. The half-time of emptying of tracer activity from the right pelvicaliceal system is 6.3 minutes. The half-time of emptying from the left pelvicaliceal system is 7.3 minutes. Normal emptying half-times are less than 10 minutes; borderline ranges are from 10 to 20 minutes. IMPRESSION: 1. Normal radionuclide renogram. 2. No findings to suggest urinary leak or obstruction. 3. Right kidney contributes 54.4% of total renal function. Left kidney contributes 45.6% of total renal function. Dictated by: Katherine Figueroa M.D. on 11/11/2019 at 8:53 Transcribed by: NEFTALI on 11/11/2019 at 8:56 Approved by: Katherine Figueroa M.D. on 11/11/2019 at 11:42
== END ==
PROVIDERS: PCP Family Medicine; Referring Provider Specialist; Visit Provider Specialist
DX: S37.10XD Unspecified injury of ureter, subsequent encounter (principal); X58.XXXD Exposure to other specified factors, subsequent encounter
CPT/HCPCS: 78708; A9562

== ENCOUNTER → 2019-12-26 12:59 | Outpatient (CLI) | payer OTHER, SELFPAY ==
[2019-10-14 09:15] VITALS: BMI 32.4
== END ==
PROVIDERS: PCP Family Medicine; Visit Provider Specialist
DX: N39.0 Urinary tract infection, site not specified (principal); S37.10XD Unspecified injury of ureter, subsequent encounter
CPT/HCPCS: 52310; 81002; 87086

== ENCOUNTER → 2020-02-26 09:09 | Outpatient (CLI) | payer OTHER, SELFPAY ==
[2019-12-26 13:36] VITALS: BMI 32.4
--- NOTE | 2020-02-26 09:10 | DI.NM.S_ITS ---
PROCEDURE: NM RENAL FUNCTION W LASIX RADIOPHARMACEUTICAL: 10.4 mCi Tc-99m MAG3 IV and 40 mg furosemide IV. INDICATIONS: left ureteral injury TECHNIQUE: The patient was hydrated orally before the examination was begun. After intravenous administration of Tc-99m MAG3, posterior abdominal radionuclide angiogram and sequential (1 minute each frame) renal images were obtained. A time-activity curve for each kidney was generated and analyzed. To evaluate for obstruction, the patient was given 40 mg furosemide via slow intravenous injection after the start of the examination. Sequential images were obtained for up to an additional 20 minutes. COMPARISON: [place], [place], [place] RENAL FUNCTION W LASIX, 11/08/2019, 16:33. [facility], [place], [place] PYELOGRAM RETROGRADE, 06/11/2019, 18:22. [facility], CT, CT ABDOMEN PELVIS W CON, 05/10/2019, 15:33. [facility], CT, CT ABDOMEN PELVIS W CON, 06/10/2019, 12:25. [facility], [place], [place] PYELOGRAM RETROGRADE, 10/11/2019, 11:17. FINDINGS: Perfusion: There is normal vascular flow to both kidneys. Morphology: Both kidneys are normal in size and shape. No dilated collecting systems are seen. The ureters and bladder fill with tracer, and appear normal. Function: Both kidneys demonstrate normal cortical tracer uptake, with dvrm-pv-ywvq activity ranging from 3 to 5 minutes. The right kidney contributes 52.1% of total renal function. The left kidney contributes 47.9% of total renal function. Lasix stimulation: After diuretic administration, there is prompt clearance of tracer activity from the renal collecting systems in both kidneys. The half-time of emptying of tracer activity from the right pelvicaliceal system is 2.2 minutes. The half-time of emptying from the left pelvicaliceal system is 3.7 minutes. Normal emptying half-times are less than 10 minutes; borderline ranges are from 10 to 20 minutes. IMPRESSION: 1. Normal radionuclide renogram. 2. No urinary obstruction or urinary leak. 3. Right kidney contributes 52% and left kidney 48% of total renal function. Dictated by: Katherine Figueroa M.D. on 02/26/2020 at 11:13 Approved by: Katherine Figueroa M.D. on 02/26/2020 at 11:22
== END ==
PROVIDERS: PCP Family Medicine; Referring Provider Specialist; Visit Provider Specialist
DX: S37.10XA Unspecified injury of ureter, initial encounter (principal)
CPT/HCPCS: 78708; A9562

== ENCOUNTER → 2020-06-18 14:58 | Outpatient (CLI) | payer OTHER, SELFPAY ==
[2019-12-26 13:36] VITALS: BMI 32.4
--- NOTE | 2020-06-18 19:56 | DI.NM.S_ITS ---
DATE OF SERVICE: 06/18/2020 PROCEDURE PERFORMED: Standard exercise treadmill stress test without imaging. ORDERING PROVIDER: Nestor Suárez M.D. INDICATIONS: The patient is a 49-year-old female with a history of LAD dissection requiring stenting one year ago. FINDINGS: 1. The patient was able to exercise for 6 minutes 44 seconds on a standard Archie protocol suggesting mild-moderately impaired exercise capacity with an AUGUSTO of +14%, achieving 7.0 METS. 2. She had a mildly blunted heart rate response with a resting heart rate of 72 BPM, increasing to a maximum of 122 BPM, 73% of her predicted maximum. She had a fairly flat blood pressure response but no hypotensive response. 3. She had no chest discomfort or other anginal symptoms. 4. Her resting ECG shows sinus rhythm with occasional PACs but normal ST segments. With exercise, there are no obvious ST-segment shifts, although there is considerable motion artifact that makes interpretation challenging, yet the early recovery tracings show no significant ST-segment abnormalities. She had occasional PACs, occasionally in couplets with brief runs of SVT up to eight beats at 170 BPM with exercise, but no sustained arrhythmia. IMPRESSION: 1. Normal exercise treadmill with no ECG evidence for ischemia although with reduced sensitivity because of a blunted heart rate response. 2. Mildly impaired exercise capacity without angina. She had occasional PACs with brief SVT up to eight beats at 170 BPM with exercise but no sustained arrhythmia. Kacy Taylor - LIN/robby/chema doc#: [id number]/job#: [id number] dd: 06/18/2020 17:09:00 dt: 06/18/2020 19:35:00 DICTATING MD/COPIES TO: Tien Goldsmith MD; Nestor Suárez M.D. COPIES MNE: AUNDREA;
== END ==
PROVIDERS: PCP Family Medicine; Referring Provider Internal Medicine; Visit Provider Internal Medicine
DX: R07.9 Chest pain, unspecified (principal); I25.10 Atherosclerotic heart disease of native coronary artery without angina pectoris; Z95.5 Presence of coronary angioplasty implant and graft
CPT/HCPCS: 93017

== ENCOUNTER → 2020-07-16 12:19 | Outpatient (CLI) | payer OTHER, SELFPAY ==
[2019-12-26 13:36] VITALS: BMI 32.4
[2020-07-16 13:26] LABS: Add Manual Diff / Slide Review NO; Basophils Absolute Auto 100 /uL (0-100); Eosinophils Absolute Auto 300 /uL (0-450); Eosinophils Percent Auto 3.1 % (2-4); Hematocrit 42.2 % (36-46); Lymphocytes Absolute Auto 1700 /uL (1100-4500); Lymphocytes Percent Auto 21.3 % (25-40); Mean Corpuscular HGB Conc 33.1 % (30-36); Mean Corpuscular Hemoglobin 27.2 PG (26-34); Mean Corpuscular Volume 82.1 fL (80-100); Monocytes Absolute Auto 500 /uL (0-900); Neutrophils Absolute Auto 5600 /uL (1500-7000); Neutrophils Percent Auto 68.6 % (50-75); Platelet Count 324 X10^3/uL (150-400); Red Blood Cell Count 5.14 X10^6/uL (4.0-5.2); Red Cell Distribution Width 14.4 % (11.6-14.8); White Blood Cell Count 8.1 X10^3/uL (4.5-11.0)
[2020-07-16 14:33] LABS: Free T4, Direct Thyroxine 1.94 ng/dL (0.78-2.19)
[2020-07-16 14:47] LABS: Thyroid Stimulating Hormone 1.54 uIU/mL (0.47-4.68)
== END ==
PROVIDERS: PCP Family Medicine; Referring Provider Obstetrics & Gynecology; Visit Provider Obstetrics & Gynecology
DX: N93.9 Abnormal uterine and vaginal bleeding, unspecified (principal)
CPT/HCPCS: 36415; 84439; 84443; 85025

== ENCOUNTER → 2021-01-13 09:10 | Outpatient (CLI) | payer OTHER, MEDICAID, SELFPAY ==
[2019-12-26 13:36] VITALS: BMI 32.4
[2021-01-13 21:08] LABS: COVID19 - ORCAS (NP or Nasal) Negative (Negative)
== END ==
PROVIDERS: PCP Family Medicine; Visit Provider Physician Assistant Medical
DX: Z20.822 Contact with and (suspected) exposure to COVID-19 (principal)
CPT/HCPCS: C9803; U0003

== ENCOUNTER → 2022-07-04 10:34 | Outpatient (CLI) | payer OTHER, MEDICAID, SELFPAY ==
[2019-12-26 13:36] VITALS: BMI 32.4
--- NOTE | 2022-07-04 10:36 | DI.US.S_ITS ---
PROCEDURE: US PELVIC COMPLETE INDICATIONS: ABDNORMAL UTERINE AND VAGINAL BLEEDING TECHNIQUE: Real-time scanning was performed of the pelvic organs, with image documentation. Additional endovaginal scanning was necessary due to incomplete visualization of the adnexal and endometrial structures by transabdominal scanning. COMPARISON: [facility], [place], US PELVIC COMPLETE, 07/16/2020, 12:03. FINDINGS: Uterus: Uterus is anteverted and normal in size at 7.3 x 3.2 x 4.5 cm. The myometrium is heterogeneous. The endometrium measures 10.1 mm combined thickness. Ovaries: Left ovary surgically absent. Right ovary measures 3.3 x 2.4 x 3.3 cm with volume estimated 14.5 cc. Simple right ovarian cyst measuring 2.8 cm. Other: No pathologic free abdominal or pelvic fluid. IMPRESSION: 1. Thickening of the endometrial complex at 10.1 mm in this postmenopausal female and endometrial biopsy is recommended. 2. 2.8 cm simple right ovarian cyst. We strive to produce accurate, complete, and clear reports of imaging services. To assist us in improving patient care, this report was composed using standard report templates and voice recognition software. Therefore, it may contain abnormal punctuation, insertions and/or omissions. Occasional wrong-word or sound-alike substitutions may occur. Though we review the report and make efforts to correct it, we do recommend that the report be read carefully in proper context to recognize any text inaccuracies. Dictated by: on 07/04/2022 at 11:45 Transcribed by: on 07/04/2022 at 11:47 Approved by: Luigi Vaughn M.D. on 07/04/2022 at 12:46
== END ==
PROVIDERS: PCP Family Medicine; Referring Provider Urology; Visit Provider Urology
DX: N83.291 Other ovarian cyst, right side (principal); N93.9 Abnormal uterine and vaginal bleeding, unspecified; R93.89 Abnormal findings on diagnostic imaging of other specified body structures
CPT/HCPCS: 76830; 76856

== ENCOUNTER → 2024-07-23 09:32 | Outpatient (CLI) | payer OTHER, SELFPAY ==
[2019-12-26 13:36] VITALS: BMI 32.4
[2024-07-23 10:13] LABS: Add Manual Diff / Slide Review NO; Basophils Absolute Auto 100 /uL (0-100); Basophils Percent Auto 0.8 % (0-2); Eosinophils Absolute Auto 400 /uL (0-450); Eosinophils Percent Auto 4.8 % (2-4); Hematocrit 38.6 % (36-46); Hemoglobin 12.7 g/dL (12.0-16.0); Lymphocytes Absolute Auto 2200 /uL (1100-4500); Lymphocytes Percent Auto 25.7 % (25-40); Mean Corpuscular Hemoglobin 26.9 PG (26-34); Mean Corpuscular Volume 81.4 fL (80-100); Monocytes Absolute Auto 500 /uL (0-900); Monocytes Percent Auto 6.2 % (3-14); Neutrophils Absolute Auto 5400 /uL (1500-7000); Neutrophils Percent Auto 62.5 % (50-75); Platelet Count 332 X10^3/uL (150-400); Red Blood Cell Count 4.74 X10^6/uL (4.0-5.2); Red Cell Distribution Width 14.5 % (11.6-14.8); White Blood Cell Count 8.6 X10^3/uL (4.5-11.0)
== END ==
PROVIDERS: PCP Family Medicine; Referring Provider Internal Medicine Critical Care Medicine; Visit Provider Internal Medicine Critical Care Medicine
DX: J45.909 Unspecified asthma, uncomplicated (principal)
CPT/HCPCS: 36415; 82785; 85025; 86003

== ENCOUNTER → 2024-10-01 14:46 | Outpatient (CLI) | payer OTHER, SELFPAY ==
[2019-12-26 13:36] VITALS: BMI 32.4
== END ==
LOC: RESP 14:49
PROVIDERS: PCP Family Medicine; Referring Provider Internal Medicine Critical Care Medicine; Visit Provider Internal Medicine Critical Care Medicine
DX: J45.40 Moderate persistent asthma, uncomplicated (principal); Z87.891 Personal history of nicotine dependence; R94.2 Abnormal results of pulmonary function studies
CPT/HCPCS: 94060; 94726; 94729